=== PATIENT | male | born 1945 | race Caucasian/White ===

== ENCOUNTER 2018-01-12 20:48 | Inpatient (IN) ==
[2018-01-12] MEDS ORDERED: Ipratropium/Albuterol Neb 3 ML IH ONE (20:59)
[2018-01-12] MEDS ORDERED: methylPREDNISolone 125 MG/2 ML VIAL IVP ONE (21:00)
--- NOTE | 2018-01-12 21:25 | Emergency Department Note ---
Disposition Clinical Impression: Acute exacerbation of chronic obstructive airways disease Disposition: Admitted As Inpatient Condition: Fair [facility] Care Provider[facility] - Forms: ED Satisfaction Letter Time of Disposition: 22:31 General Adult HPI - General Chief complaint: ED Shortness of Breath/Dyspnea Stated complaint: MERVIN Time Seen by Provider: 01/12/18 20:58 Source: patient, family Mode of arrival: ambulatory Limitations: no limitations Nursing Notes Reviewed: Yes Vital Signs Reviewed: Yes - History of Present Illness HPI Narrative: 72yo male with past medical history of CAD, CABG, COPD, hypertension presented to [facility] via ambulance complaining of shortness of breath for one day. He reported he woke up with the shortness of breath that he has had all day then this evening it became worse so his nephew called EMS. He reported he took nebulizers and a nitroglycerin to help shortness of breath, which the nebulizers did help. He is up today on his flu and pneumonia vaccination. He denies recent hospitalization, fever, chills, chest pain, palpitations, syncope, abdominal pain, wheezing, cough, nausea, vomiting. He does not use home oxygen. He reports he has been compliant with his home inhalers and blood pressure medications. He receives his medical care from the [facility]. He denies history of DVT or PE. He is the current smoker of 1ppd for 30 years. - Related Data Home Medications Medication Instructions Recorded Confirmed Aspirin/Calcium Carbonate/Mag 325 mg PO DAILY 07/17/15 07/31/15 [Aspirin Buffered 325 mg Tab] Chlorthalidone 50 mg PO QAM 07/17/15 07/31/15 Ipratropium/Albuterol Sulfate 1 puff IH QID 07/31/15 07/31/15 [Combivent Respimat Inhal [place]] Atorvastatin Calcium [Lipitor] 80 mg PO HS 01/12/18 01/12/18 Loratadine [Claritin] 10 mg PO DAILY 01/12/18 01/12/18 Losartan Potassium [Cozaar] 50 mg PO BID 01/12/18 01/12/18 Metoprolol Tartrate [Metoprolol 50 mg PO BID 01/12/18 Tartrate] Sildenafil Citrate [Revatio] 20 mg PO TID 01/12/18 01/12/18 Allergies Allergy/AdvReac Type Severity Reaction Status Date / Time No Known Allergies Allergy Verified 12/10/15 08:42 All systems ED: reviewed and negative except as stated. Review of Systems: As Per HPI Constitutional: Denies: fever, chills Eyes: Denies: vision change Cardiovascular: Denies: chest pain, palpitations Respiratory: Reports: dyspnea. Denies: cough, wheezes Gastrointestinal: Denies: abdominal pain, nausea, vomiting Integumentary: Denies: rash Neurological: Denies: headache, weakness Past Medical History - Past Medical History Source: patient Medical history: Reports: coronary artery disease, GERD, hyperlipidemia, hypertension, other Surgical history: Reports: other Psychiatric history: Reports: no psych history - Social History Smoking Status: Current every day smoker Smokeless Tobacco Status: No Alcohol use: Reports: none Drug use: Reports: none Physical Exam - General Limitations: no limitations General appearance: alert, in no apparent distress - Head Head exam: atraumatic, normocephalic - Eye Eye exam: Present: normal appearance. Absent: scleral icterus - ENT ENT exam: mucous membranes dry - Chest Chest inspection: Present: normal inspection - Respiratory Respiratory exam: Present: wheezes (Bilaterally), other (Decreased breath sounds bilaterally) - Cardiovascular Cardiovascular exam: Present: regular rate, normal rhythm - Abdominal Exam Abdominal exam: Present: soft, Non-Tender, normal bowel sounds - Expanded Lower Extremity Exam Lower leg exam: Present: swelling (Bilateral). Absent: tenderness, laceration - Neurological Exam Neurological exam: Present: alert, oriented X3 - Psychiatric Psychiatric exam: Present: normal affect, normal mood - Skin Skin exam: Present: dry, intact Course Course Narrative: 72yo male with past medical history of CAD, CABG, COPD, hypertension presented to [facility] via ambulance complaining of shortness of breath for one day. The shortness of breath had been stable all day until this evening when it increased and EMS was called. He reported nebulizers improved his shortness of breath. He denied fever, chills, chest pain, palpitations, trauma. Differential includes COPD exacerbation, pneumonia, CHF exacerbation, pneumothorax. Chest x-ray, CBC, BMP, BNP, VBG, troponin, EKG were ordered. - Reevaluation(s) Reevaluation #1: Patient seen and evaluated at bedside, he reports shortness of breath has improved significantly. He stated that he is "ready for a cup of coffee". He is responding appropriately to the steroids and BiPAP. He was given a dose of Levaquin. Will call hospital is for admission. Time: 22:04 Vital Signs Respiratory Rate 22 01/12/18 20:58 Blood Pressure 175/122 01/12/18 20:58 O2 Sat by Pulse Oximetry 98 01/12/18 20:58 Respiratory Rate 22 01/12/18 20:58 Blood Pressure 175/122 01/12/18 20:58 O2 Sat by Pulse Oximetry 98 01/12/18 20:58 Medical Decision Making - MDM Narrative Medical decision making narrative: 72yo male with past medical history of CAD, CABG, COPD, hypertension presented to [facility] via ambulance complaining of shortness of breath for one day. He reported he woke up with the shortness of breath that he has had all day then this evening it became worse so his nephew called EMS. He reported he took nebulizers and a nitroglycerin to help shortness of breath, which the nebulizers did help. He is up today on his flu and pneumonia vaccination. He denies recent hospitalization, fever, chills, chest pain, palpitations, syncope, abdominal pain, wheezing, cough, nausea, vomiting, trauma. He does not use home oxygen. He reports he has been compliant with his home inhalers and blood pressure medications. He denies history of DVT or PE. He is the current smoker of 1ppd for 30 years. Upon admission he was placed on BiPAP. He was given Solu-Medrol, Levaquin, and duoneb. Chest x-ray demonstrated findings consistent with COPD, with small left pleural effusion. CBC demonstrate WBC mildly elevated. BNP 224, troponin negative. This is most likely a COPD exacerbation. The patient has reported improved shortness of breath since having the medications. Dr. Marquez the hospitalist has accepted admission of the patient. - Medical Records Medical records reviewed: Yes I reviewed the patient's medical records. - Lab Data Lab results reviewed: Yes I reviewed the patient's lab results. - Radiology Data Radiology results reviewed: Yes I reviewed the patient's radiology results. Chest X-Ray 01/12/18 20:59 IMPRESSION: 1. Slight increase in diffuse interstitial prominence, which could represent some mild edema superimposed on COPD. 2. Stable cardiomegaly. 3. Stable blunting of the left costophrenic angle with a small effusion or pleural thickening. D/ / 01/12/2018 21:52:16 Richard Prasad MD / denny Interpreting Provider: Richard Prasad MD - EKG Data EKG #1 EKG results narrative: EKG demonstrates HR 98, NSR, normal axis, no ST changes. T wave inversion in lead V-6 however, T wave inversion on lead 1 and aVL is seen on prior EKG. IN 160, QRS 97, QT/QTc 356/411 EKG shows normal: sinus rhythm Rate: normal Rhythm: NSR [place]/QRS: normal
[2018-01-12 21:36] LABS: Basophils % 0.3 %; Eosinophils # 0.1 K/mcL (0.0-0.6); Eosinophils % 0.8 %; Hemoglobin 14.8 g/dL (12.9-16.9); Lymphocytes # 1.2 K/mcL (0.6-4.6); Lymphocytes % 9.7 %; Mean Corpuscular HGB Conc 32.9 g/dL (31.6-35.5); Mean Corpuscular Hemoglobin 29.9 pg (28.0-33.3); Mean Corpuscular Volume 90.9 fL (83.0-100.0); Mean Platelet Volume 8.8 fL (9.4-12.4); Monocytes # 0.7 K/mcL (0.0-1.3); Monocytes % 5.9 %; Neutrophils # 10.3 K/mcL (1.6-8.9); Platelet Count 256 K/mcL (140-400); Red Blood Count 4.95 M/mcL (4.19-5.50); Red Cell Distribution Width 13.4 % (11.5-14.5); Segmented Neutrophils % 82.3 %
[2018-01-12 21:39] LABS: VBG HCO3 31 mEq/L (21-27); VBG PCO2 64 mmHg (41-51); VBG PO2 68 mmHg (25-50)
[2018-01-12] MEDS ORDERED: Levofloxacin 750 MG/150 ML 750 MG/150 ML BAG IVPB ONE (21:55)
[2018-01-12 21:58] LABS: BUN/Creatinine Ratio 26 (6-26); Blood Urea Nitrogen 25 mg/dL (8-23); Calcium 8.9 mg/dL (8.6-10.3); Carbon Dioxide 29 mEq/L (23-29); Chloride 92 mEq/L (98-107); Glucose 161 mg/dL (70-105); Osmolality,Calculated 274 (280-300); Potassium 4.3 mEq/L (3.5-5.1); Sodium 128 mEq/L (136-145); eGFR For African Americans > 60 (> 60); eGFR For Non-African Americans > 60 (> 60)
[2018-01-12 21:59] LABS: Troponin I 0.03 ng/mL (< 0.04)
--- NOTE | 2018-01-12 22:40 | Internal Med History&Physical ---
Date of Encounter: 01/12/18 Time of Encounter: 22:36 Internal Medicine - H&P: HPI Chief complaint: shortness of breath Admitted From: Emergency Dept Plans for Post Hospital Care: Home History of present illness: Mr. Ibanez is a 72 year old male with PMH of CAD s/p CABG, COPD, hypertension, pulm htn, tobacco abuse who presents to the ED via EMS complaining of shortness of breath since the morning. The patient woke up like this and has been significantly in respiratory distress all day and his nephew ended up calling EMS. He took his nebulizers without any relief. Talking more to the patient and his sister and son who were in the room in the ED, they tell me that the patient has been actually short of breath for 6 weeks or so. During that time he has been evaluated at the [facility] about 2 weeks ago with an echo. I dont have results of that but they said they have the results at home and will bring it in. They were told he has pulm htn. They also say that he has SOB with exertion. He has been dealing with a dry cough. He has gained weight in his abdomen and LE. He has gained about 20 Ibs in 6 weeks or so. The ED treated him as a COPD exacerbation. Denies any fever, chills, chest pain, palpitations, abdominal pain, diarrhea, constipation, urinary symptoms, or neurological symptoms. Upon presentation the patient was in significant respiratory distress that he was put on BiPAP however I do not see documented hypoxia. EMS reports he was around 86% on room air initially. He was given IV steroids for wheezing as well as a couple of nebulizers. Laboratory workup showed WBC count of 12.5 and was also given for hyponatremia of 128. The patient BNP was 224. Chest x-ray showed findings of slight increase in diffuse interstitial prominence which could represent some mild edema superimposed on COPD. Last echo in our system was in 2014 showing an EF of 60-65% with LVH and indeterminate diastolic function. There was no valvular dysfunction. Past Med Surg Social Fam HX - Past Medical History Medical history: coronary artery disease, GERD, hyperlipidemia, hypertension, other Additional medical history: Pulmonary hypertension Psychiatric history: no psych history - Past Surgical History Surgical History: other Additional surgical history: open heart surgery - Social History Smoking Status: Current every day smoker Smokeless Tobacco Status: No Alcohol use: none Drug use: none - Family History Mother Family Member Ethnicity: Non- Living Status: Hx Family Cardiac Disorders: Yes Hx Family Cancer: Yes Hx Family Endocrine Disorder: Yes Internal Medicine - H&P: Meds Aspirin/Calcium Carbonate/Mag [Aspirin Buffered 325 mg Tab] 325 mg PO DAILY 05/22 [History] Chlorthalidone 50 mg PO QAM 07/17/15 [History] Ipratropium/Albuterol Sulfate [Combivent Respimat Inhal [place]] 1 puff IH QID [History] Atorvastatin Calcium [Lipitor] 80 mg PO HS 01/12/18 [History] Loratadine [Claritin] 10 mg PO DAILY 01/12/18 [History] Losartan Potassium [Cozaar] 50 mg PO BID 01/12/18 [History] Metoprolol Tartrate [Metoprolol Tartrate] 50 mg PO BID 01/12/18 [History] Sildenafil Citrate [Revatio] 20 mg PO TID 01/12/18 [History] 3 Allergy/AdvReac Type Severity Reaction Status Date / Time No Known Allergies Allergy Verified 07/17/15 08:42 All Systems PM: A 10-system review of systems was performed and is negative for pertinent findings except as documented above in the HPI. Review of systems: All systems reviewed are negative except for as mentioned above - Constitutional Vitals: Temp Pulse Resp BP Pulse Ox 98.4 F 103 24 222/135 98 01/12/18 21:27 01/12/18 21:27 01/12/18 21:27 01/12/18 21:27 01/12/18 21:27 Exam: GEN: NAD HEENT: AT, NC, No cyanosis, oral mucosa is moist, No JVD Lymphatics: No lymphadenoapthy Eyes: Extrocular muscles intact, anicteric CVS:RRR. S1, S2, No m/r/g RESP: Diminished with bibasilar crackles and expiratory wheezes. ABD: Soft, NT, ND, +BS EXT: No edema, No rashes, 2+ DP NEURO: Nonfocal, CN II-XII intact, No focal motor or sensory deficits Psych: Cooperative, Not anxious or depressed Internal Med - H&P Results - Labs CBC & Chem 7: 01/12/18 21:21 01/12/18 21:21 Labs: Short CBC 01/12/18 Range/Units 21:21 WBC 12.5 H (4.3-11.1) K/mcL Hgb 14.8 (12.9-16.9) g/dL Hct 45.0 (37.5-50.1) % Plt Count 256 (140-400) K/mcL Neutrophils # 10.3 H (1.6-8.9) K/mcL BMP 01/12/18 21:21 Sodium 128 L Potassium 4.3 Chloride 92 L Carbon Dioxide 29 BUN 25 H Creatinine 0.96 Glucose 161 H Calcium 8.9 Cardiac Enzymes 01/12/18 Range/Units 21:21 Troponin I 0.03 (< 0.04) ng/mL - ABG Interpretation ABG results: 01/12/18 21:36 VBG pH 7.30 L VBG pCO2 64 H VBG pO2 68 H VBG HCO3 31 H - Impressions ITS Impressions Chest X-Ray 01/12/18 20:59 IMPRESSION: 1. Slight increase in diffuse interstitial prominence, which could represent some mild edema superimposed on COPD. 2. Stable cardiomegaly. 3. Stable blunting of the left costophrenic angle with a small effusion or pleural thickening. D/ / 01/12/2018 21:52:16 Richard Prasad MD / [email or web address] Interpreting Provider: Richard Prasad MD - Assessment and plan (1) Acute respiratory failure with hypoxia Current Visit: Yes Status: Acute Assessment and plan: The patient was presented as a COPD exacerbation. Although he may have some componenet of that, I think his symptoms and work up in the ED is most consistent with a CHF exacerbation. He has elevated BNP and findings on chest x- ray of edema. He has LE edema and significant weight gain. I will treat the patient for CHF exacerbation and COPD exacerbation. I will also give him a dose of Lasix 40 mg IV now (2) CHF exacerbation Current Visit: Yes Status: Acute Assessment and plan: Will give lasix 40 mg IV now. Family to obtain echo results done 2 weeks ago. Start lasix 40 mg IV BID. monitor I&Os. cardiac diet. O2 support. Nebs. Qualifiers: Heart failure type: unspecified Qualified Code(s): I50.9 - Heart failure, unspecified (3) Acute exacerbation of chronic obstructive airways disease Current Visit: Yes Status: Acute Assessment and plan: We will place the patient on IV Solu-Medrol scheduled. Scheduled nebs. IV Levaquin. Wean O2 as tolerated. (4) Hyponatremia Current Visit: Yes Status: Acute Assessment and plan: Na mildly low at 128. Possibly some volume overload. Will try 40mg IV lasix once and check labs in the morning. check urine Na and urine osm. (5) HTN (hypertension) Current Visit: No Status: Chronic Assessment and plan: Resume home antihypertensives Qualifiers: Hypertension type: essential hypertension Qualified Code(s): I10 - Essential (primary) hypertension (6) Pre-diabetes Current Visit: Yes Status: Acute Assessment and plan: Insulin sliding scale. Accucheks. check A1c. (7) CAD (coronary artery disease) Current Visit: Yes Status: Acute Assessment and plan: Resume cardiac meds Qualifiers: Coronary Disease-Associated Artery/Lesion type: bypass graft [place] vs. transplanted heart: [place] heart Associated angina: without angina Qualified Code(s): I25.810 - Atherosclerosis of coronary artery bypass graft(s) without angina pectoris (8) Tobacco abuse Current Visit: No Status: Acute Assessment and plan: Nicotine Patch (9) DVT prophylaxis Current Visit: Yes Status: Acute Assessment and plan: Heparin subcutaneous - Time Spent With Patient Total time spent is greater than 50% in coordination of care (as documented) at patient's floor/unit and/or counseling patient:
[2018-01-12] MEDS ORDERED: Furosemide 40 MG/4 ML VIAL IVP ONE (22:42)
[2018-01-12] MEDS ORDERED: Ondansetron 4 MG/2 ML VIAL IVP PRN (22:43)
[2018-01-12] MEDS ORDERED: Naloxone 0.4 MG/ML INJ IVP PRN (22:46)
[2018-01-12] MEDS ORDERED: Acetaminophen 325 MG TABLET PO PRN (22:46)
[2018-01-12] MEDS ORDERED: Aspirin 81 MG TAB.CHEW PO ONE (22:48)
[2018-01-12] MEDS ORDERED: Aspirin 81 MG TAB.CHEW ONE (22:49)
[2018-01-12] MEDS ORDERED: D5% in Water 1,000 ML IVC PRN (23:13)
[2018-01-12] MEDS ORDERED: Dextrose Gel 15 GM/37.5 ML TUBE PO PRN ×2 (23:13)
[2018-01-12] MEDS ORDERED: *HR* Dextrose 50 % in Water (Syg) 50 ML SYRINGE IVP PRN (23:13)
--- NOTE | 2018-01-12 23:30 | Emergency Department Note ---
Disposition Clinical Impression: Acute exacerbation of chronic obstructive airways disease Disposition: Admitted As Inpatient Condition: Fair General Adult HPI - General Chief complaint: ED Shortness of Breath/Dyspnea Stated complaint: MERVIN Time Seen by Provider: 01/12/18 20:58 Source: patient, family Mode of arrival: ambulatory Limitations: no limitations - History of Present Illness Pain Scale: 0 - Related Data Home Medications Medication Instructions Recorded Confirmed Aspirin/Calcium Carbonate/Mag 325 mg PO DAILY 07/17/15 01/12/18 [Aspirin Buffered 325 mg Tab] Chlorthalidone 50 mg PO QAM 07/17/15 01/12/18 Ipratropium/Albuterol Sulfate 1 puff IH QID 07/31/15 01/12/18 [Combivent Respimat Inhal [place]] Atorvastatin Calcium [Lipitor] 80 mg PO HS 01/12/18 01/12/18 Loratadine [Claritin] 10 mg PO DAILY 01/12/18 01/12/18 Losartan Potassium [Cozaar] 50 mg PO BID 01/12/18 01/12/18 Metoprolol Tartrate [Metoprolol 50 mg PO BID 01/12/18 01/12/18 Tartrate] Sildenafil Citrate [Revatio] 20 mg PO TID 01/12/18 01/12/18 Allergies Allergy/AdvReac Type Severity Reaction Status Date / Time No Known Allergies Allergy Verified 07/17/15 08:42 Constitutional: Denies: fever, chills Eyes: Denies: vision change Cardiovascular: Denies: chest pain, palpitations Respiratory: Reports: dyspnea. Denies: cough, wheezes Gastrointestinal: Denies: abdominal pain, nausea, vomiting Integumentary: Denies: rash Neurological: Denies: headache, weakness Past Medical History - Past Medical History Medical history: Reports: coronary artery disease, GERD, hyperlipidemia, hypertension, other Surgical history: Reports: other Psychiatric history: Reports: no psych history - Social History Smoking Status: Current every day smoker Smokeless Tobacco Status: No Alcohol use: Reports: none Drug use: Reports: none Physical Exam - General Limitations: no limitations General appearance: alert, in no apparent distress Course Vital Signs Respiratory Rate 22 01/12/18 20:58 Blood Pressure 175/122 01/12/18 20:58 O2 Sat by Pulse Oximetry 98 01/12/18 20:58 Temperature 98.4 F 01/12/18 21:27 Pulse Rate 103 01/12/18 21:27 Respiratory Rate 24 01/12/18 21:27 Blood Pressure 222/135 01/12/18 21:27 O2 Sat by Pulse Oximetry 98 01/12/18 21:27 Oxygen Delivery Oxygen Delivery Non Rebreather Mask Medical Decision Making - Lab Data Result diagrams: 01/12/18 21:21 01/12/18 21:21 Lab Results 01/12/18 01/12/18 01/12/18 Range/Units 21:21 21:21 21:21 WBC 12.5 H (4.3-11.1) K/mcL RBC 4.95 (4.19-5.50) M/mcL Hgb 14.8 (12.9-16.9) g/dL Hct 45.0 (37.5-50.1) % MCV 90.9 (83.0-100.0) fL MCH 29.9 (28.0-33.3) pg MCHC 32.9 (31.6-35.5) g/dL RDW 13.4 (11.5-14.5) % Plt Count 256 (140-400) K/mcL MPV 8.8 L (9.4-12.4) fL Immature Gran % 1.0 (0-4) % Seg Neutrophils % 82.3 % Lymphocytes % 9.7 % Monocytes % 5.9 % Eosinophils % 0.8 % Basophils % 0.3 % Neutrophils # 10.3 H (1.6-8.9) K/mcL Lymphocytes # 1.2 (0.6-4.6) K/mcL Monocytes # 0.7 (0.0-1.3) K/mcL Eosinophils # 0.1 (0.0-0.6) K/mcL Basophils # 0.0 (0.0-0.2) K/mcL VBG pH (7.32-7.42) pH Units VBG pCO2 (41-51) mmHg VBG pO2 (25-50) mmHg VBG HCO3 (21-27) mEq/L Sodium 128 L (136-145) mEq/L Potassium 4.3 (3.5-5.1) mEq/L Chloride 92 L (98-107) mEq/L Carbon Dioxide 29 (23-29) mEq/L BUN 25 H (8-23) mg/dL Creatinine 0.96 (0.70-1.30) mg/dL Est GFR ( Amer) > 60 (> 60) Est GFR (Non-Af Amer) > 60 (> 60) BUN/Creatinine Ratio 26 (6-26) Glucose 161 H (70-105) mg/dL Calculated Osmolality 274 L (280-300) Lactic Acid (0.5-2.2) mmol/L Calcium 8.9 (8.6-10.3) mg/dL Troponin I 0.03 (< 0.04) ng/mL B-Natriuretic Peptide 224 H (Less than 100) pg/mL 01/12/18 01/12/18 Range/Units 21:36 22:27 WBC (4.3-11.1) K/mcL RBC (4.19-5.50) M/mcL Hgb (12.9-16.9) g/dL Hct (37.5-50.1) % MCV (83.0-100.0) fL MCH (28.0-33.3) pg MCHC (31.6-35.5) g/dL RDW (11.5-14.5) % Plt Count (140-400) K/mcL MPV (9.4-12.4) fL Immature Gran % (0-4) % Seg Neutrophils % % Lymphocytes % % Monocytes % % Eosinophils % % Basophils % % Neutrophils # (1.6-8.9) K/mcL Lymphocytes # (0.6-4.6) K/mcL Monocytes # (0.0-1.3) K/mcL Eosinophils # (0.0-0.6) K/mcL Basophils # (0.0-0.2) K/mcL VBG pH 7.30 L (7.32-7.42) pH Units VBG pCO2 64 H (41-51) mmHg VBG pO2 68 H (25-50) mmHg VBG HCO3 31 H (21-27) mEq/L Sodium (136-145) mEq/L Potassium (3.5-5.1) mEq/L Chloride (98-107) mEq/L Carbon Dioxide (23-29) mEq/L BUN (8-23) mg/dL Creatinine (0.70-1.30) mg/dL Est GFR ( Amer) (> 60) Est GFR (Non-Af Amer) (> 60) BUN/Creatinine Ratio (6-26) Glucose (70-105) mg/dL Calculated Osmolality (280-300) Lactic Acid 0.7 (0.5-2.2) mmol/L Calcium (8.6-10.3) mg/dL Troponin I (< 0.04) ng/mL B-Natriuretic Peptide (Less than 100) pg/mL Critical Care Time Critical Care Time: Yes Total Critical Care Time: 35 Attestation: The high probability of a clinically significant, sudden or life threatening deterioration of the [resp] system(s) required my full and direct attention, intervention and personal management. The aggregate critical care time was [35] minutes. This time is in addition to time spent performing reported procedures but includes the following: [x] Data Review and interpretation [x] Patient assessment and monitoring of vital signs [x] Documentation [x] Medication orders and management Attestation Statement - Attestation Attestation: I examined this patient and my medical decision-making was reviewed with the Resident Physician, Dr. Morales. I agree with the documented findings, disposition and treatment plan as described except to the extent set forth below. Patient is a 72-year-old white male with a history of known coronary artery disease status post remote CABG as well as COPD who presents to the emergency department with a 24-hour history of gradually worsening shortness of breath. Patient denies any fevers or chills, no production of cough, is not wheezing I laterally throughout with increased work of breathing and respiratory distress on arrival with hypoxia. Patient denies any chest pain pressure or heaviness, no diaphoresis, no nausea vomiting or posttussive emesis. No abdominal pain or flank pain. I agree with patient's physical exam findings as documented. Patient's EKG does not show any acute ischemia normal sinus rhythm. Patient was placed on BiPAP shortly after arrival for respiratory distress. Patient had breathing treatments and steroids initiated and also received aspirin. Patient with gradual improvement in respiratory status with BiPAP. Patient's chest x-ray shows some mild interstitial prominence but no acute infiltrate, cardiomegaly. Patient's labs show mild hyponatremia as well as leukocytosis with left shift. IV fluids were held due to increased interstitial prominence. Lactate is within normal limits. Patient with IV antibiotics added for exacerbation of COPD and will be admitted to the hospitalist service patient's hemodynamically stable, respiratory status significantly improved at this time and chest pain- free. Case discussed with hospitalist who accepted patient for admission for further evaluation and management.
[2018-01-13] MEDS: Nicotine 21 MG PATCH.TD24 TD SCH ×2 (00:21→08:41)
[2018-01-13] MEDS: methylPREDNISolone 125 MG/2 ML VIAL IVP SCH ×3 (00:21→17:37)
[2018-01-13] MEDS: Ipratropium/Albuterol Neb 3 ML IH SCH ×5 (04:42→20:04)
[2018-01-13] MEDS: *HR* Heparin 5,000 UNIT/ML VIAL SQ SCH ×3 (06:39→20:35)
[2018-01-13 06:44] LABS: Basophils % 0.2 %; Hematocrit 44.9 % (37.5-50.1); Immature Granulocytes % 1.2 % (0-4); Lymphocytes # 0.4 K/mcL (0.6-4.6); Lymphocytes % 3.5 %; Mean Corpuscular HGB Conc 33.4 g/dL (31.6-35.5); Mean Corpuscular Hemoglobin 30.2 pg (28.0-33.3); Mean Corpuscular Volume 90.5 fL (83.0-100.0); Monocytes # 0.1 K/mcL (0.0-1.3); Monocytes % 0.5 %; Neutrophils # 11.4 K/mcL (1.6-8.9); Platelet Count 245 K/mcL (140-400); Red Blood Count 4.96 M/mcL (4.19-5.50); Red Cell Distribution Width 13.4 % (11.5-14.5); Segmented Neutrophils % 94.6 %
[2018-01-13 06:52] LABS: BUN/Creatinine Ratio 26 (6-26); Blood Urea Nitrogen 24 mg/dL (8-23); Carbon Dioxide 27 mEq/L (23-29); Chloride 91 mEq/L (98-107); Glucose 187 mg/dL (70-105); Magnesium 1.8 mg/dL (1.6-2.6); Osmolality,Calculated 271 (280-300); Potassium 4.4 mEq/L (3.5-5.1); Sodium 126 mEq/L (136-145); eGFR For African Americans > 60 (> 60); eGFR For Non-African Americans > 60 (> 60)
[2018-01-13] MEDS: Loratadine 10 MG TABLET PO SCH (08:40)
[2018-01-13] MEDS: Aspirin Enteric Coated 325 MG Tablet PO SCH (08:40)
[2018-01-13] MEDS: Insulin LISPRO 300 UNITS/3 ML VIAL SQ SCH ×4 (08:41→20:35)
[2018-01-13] MEDS ORDERED: Furosemide 40 MG/4 ML VIAL IVP SCH (09:00)
[2018-01-13 09:07] LABS: Estimated Average Glucose 151 mg/dl; Hemoglobin A1C 6.9 %
--- NOTE | 2018-01-13 10:37 | Internal Med Progress Note ---
Date of Encounter: 01/13/18 Time of Encounter: 10:35 - Assessment and plan (1) HTN (hypertension) Current Visit: Yes Status: Chronic Assessment and plan: Uncontrolled Continue metoprolol, losartan, lasix, hold chlorthalidone while giving lasix hydralazine prn Qualifiers: Hypertension type: essential hypertension Qualified Code(s): I10 - Essential (primary) hypertension (2) Tobacco abuse Current Visit: Yes Status: Chronic Assessment and plan: encourage cessation, on NRT (3) Acute exacerbation of chronic obstructive airways disease Current Visit: Yes Status: Acute Assessment and plan: Continue levaquin, solumedrol, duonebs (4) DVT prophylaxis Current Visit: Yes Status: Acute Assessment and plan: Heparin subcutaneous (5) Hyponatremia Current Visit: Yes Status: Acute Assessment and plan: hypoosmolar, possibly due to fluid overload continue to monitor (6) Acute respiratory failure with hypoxia Current Visit: Yes Status: Acute Assessment and plan: Multifactorial: COPDE CHFE Continue O2 by NC Goal O2 is 88-92%, patient is known severe COPD (7) CHF exacerbation Current Visit: Yes Status: Acute Assessment and plan: ECHO from outside read 'moderately reduced EF, mild AI, mild MR, Pulm HTN" order repeat ECHO Continue lasix IV , increase to TID Strict I/Os Daily weight Fluid restriction ECHO Qualifiers: Heart failure type: unspecified Qualified Code(s): I50.9 - Heart failure, unspecified (8) Pre-diabetes Current Visit: Yes Status: Acute Assessment and plan: AC 6.9 See DM for mgt (9) CAD (coronary artery disease) Current Visit: Yes Status: Chronic Assessment and plan: Continuie ASA, Ststin, ARB, BB Qualifiers: Coronary Disease-Associated Artery/Lesion type: bypass graft [place] vs. transplanted heart: [place] heart Associated angina: without angina Qualified Code(s): I25.810 - Atherosclerosis of coronary artery bypass graft(s) without angina pectoris (10) Diabetes Current Visit: Yes Status: Chronic Assessment and plan: FS ACHS Sliding scale A1C 6.9 ADA diet Qualifiers: Diabetes mellitus type: type 2 Diabetes mellitus [place] insulin use: without dollyman use Diabetes mellitus complication status: without complication Qualified Code(s): E11.9 - Type 2 diabetes mellitus without complications (11) Morbid obesity with BMI of 40.0-44.9, adult Current Visit: Yes Status: Chronic Assessment and plan: lifestyle modification - Time Spent With Patient Total time spent is greater than 50% in coordination of care (as documented) at patient's floor/unit and/or counseling patient: - Subjective Interval history: Seen and evaluated at the bedside with family he is still coughing up phlegm Report from prior ECHO noted-reported as "moderately rediced EF, mild AI, aortic sclerosis, mild MR, LVH, Pulm HTN', no numbers. PFT report: Severe COPD We will obtain repeat ECHO here for specificity and soncult cardiology prn He is off BiPAP now - Constitutional Vitals: Temp Pulse Resp BP Pulse Ox 98.5 F 112 19 166/99 92 01/13/18 07:41 01/13/18 07:41 01/13/18 07:41 01/13/18 07:41 01/13/18 07:41 General appearance: Present: A&O X 3, morbidly obese, no acute distress - Head Head exam: Present: atraumatic - Eye Eye exam: Present: PERRL, conjuntiva pink. Absent: scleral icterus - ENT ENT exam: Present: mucous membranes moist - Neck Neck exam general surgery: Present: normal inspection - Respiratory Respiratory exam: Present: prolonged expiratory phase, rales, wheezes. Absent: rhonchi, stridor - Cardiovascular Cardiovascular exam: Present: RRR, +S1, +S2. Absent: systolic murmur - GI/Abdominal GI/Abdominal exam: Present: normal bowel sounds, soft, no peritoneal signs. Absent: distended, tenderness - Extremities Exam Extremities exam: Present: pedal edema (3+ bilateral pitting pedal edema) Internal Medicine: Result - Labs CBC & Chem 7: 01/13/18 06:16 01/13/18 06:16 Labs: Short CBC 01/13/18 Range/Units 06:16 WBC 12.1 H (4.3-11.1) K/mcL Hgb 15.0 (12.9-16.9) g/dL Hct 44.9 (37.5-50.1) % Plt Count 245 (140-400) K/mcL Neutrophils # 11.4 H (1.6-8.9) K/mcL BMP 01/13/18 06:16 Sodium 126 L Potassium 4.4 Chloride 91 L Carbon Dioxide 27 BUN 24 H Creatinine 0.92 Glucose 187 H Calcium 9.0 Consult Discharge Plan - Plan [facility]errals: [facility] [Primary Care Provider[facility] -
[2018-01-13] MEDS: Furosemide 40 MG/4 ML VIAL IVP SCH ×2 (17:37→20:35)
[2018-01-13] MEDS: Levofloxacin 500 MG/100 ML 500 MG/100 ML BAG IVPB SCH (17:38)
--- NOTE | 2018-01-13 17:53 | Electrocardiograph Report ---
[address] [place] [address] Test Date: 2018-01-12 Pat Name: Len Ibanez Department: [id number] Room: 2NE34 Gender: M Employee Relations Administrator: EKP : 1945 Requested By: Sheng Munoz Order Number: [id number] Reading MD: Tyrese Hall Measurements Intervals [place] Rate: 98 P: 67 [place]: 160 QRS: 8 QRSD: 97 T: 143 QT: 356 QTc: 411 Interpretive Statements SINUS RHYTHM LEFT ATRIAL ENLARGEMENT ST DEVIATION AND MODERATE T-WAVE ABNORMALITY, CONSIDER LATERAL ISCHEMIA Electronically Signed On 01-13-2018 17:51:23 EDT by Tyrese Hall
[2018-01-13] MEDS ORDERED: Perflutren Lipid Microsphere 1.3 ML in 0.9 % Sodium Chloride 8.7 ML IVP ONE (18:39)
[2018-01-13] MEDS ORDERED: Ipratropium/Albuterol Neb 3 ML IH PRN (20:22)
[2018-01-14] MEDS: Ipratropium/Albuterol Neb 3 ML IH SCH ×6 (00:25→20:16)
[2018-01-14] MEDS: methylPREDNISolone 125 MG/2 ML VIAL IVP SCH ×3 (00:59→18:00)
[2018-01-14 06:10] LABS: Basophils % 0.1 %; Hematocrit 43.3 % (37.5-50.1); Hemoglobin 14.3 g/dL (12.9-16.9); Immature Granulocytes % 0.7 % (0-4); Lymphocytes # 0.7 K/mcL (0.6-4.6); Lymphocytes % 4.6 %; Mean Corpuscular Hemoglobin 29.9 pg (28.0-33.3); Mean Corpuscular Volume 90.6 fL (83.0-100.0); Monocytes # 0.3 K/mcL (0.0-1.3); Monocytes % 2.3 %; Neutrophils # 13.1 K/mcL (1.6-8.9); Platelet Count 251 K/mcL (140-400); Red Blood Count 4.78 M/mcL (4.19-5.50); Red Cell Distribution Width 13.7 % (11.5-14.5); Segmented Neutrophils % 92.3 %
[2018-01-14] MEDS: *HR* Heparin 5,000 UNIT/ML VIAL SQ SCH ×3 (06:22→21:14)
[2018-01-14 06:33] LABS: BUN/Creatinine Ratio 30 (6-26); Blood Urea Nitrogen 36 mg/dL (8-23); Calcium 8.9 mg/dL (8.6-10.3); Carbon Dioxide 33 mEq/L (23-29); Chloride 86 mEq/L (98-107); Glucose 157 mg/dL (70-105); Osmolality,Calculated 276 (280-300); Sodium 127 mEq/L (136-145); eGFR For African Americans > 60 (> 60); eGFR For Non-African Americans 59 (> 60)
[2018-01-14] MEDS: Insulin LISPRO 300 UNITS/3 ML VIAL SQ SCH ×4 (07:46→20:20)
[2018-01-14] MEDS: Furosemide 40 MG/4 ML VIAL IVP SCH ×2 (07:52→18:00)
[2018-01-14] MEDS: Aspirin Enteric Coated 325 MG Tablet PO SCH (07:52)
[2018-01-14] MEDS: Loratadine 10 MG TABLET PO SCH (07:52)
[2018-01-14] MEDS: Nicotine 21 MG PATCH.TD24 TD SCH (07:53)
[2018-01-14] MEDS ORDERED: Furosemide 40 MG/4 ML VIAL IVP SCH (09:00)
[2018-01-14] MEDS ORDERED: Perflutren Lipid Microsphere 1.3 ML in 0.9 % Sodium Chloride 8.7 ML IVP ONE (09:40)
--- NOTE | 2018-01-14 09:59 | Internal Med Progress Note ---
Date of Encounter: 01/14/18 Time of Encounter: 09:59 - Assessment and plan (1) HTN (hypertension) Current Visit: Yes Status: Chronic Assessment and plan: Uncontrolled Continue metoprolol, losartan, lasix, hold chlorthalidone while giving lasix hydralazine prn Qualifiers: Hypertension type: essential hypertension Qualified Code(s): I10 - Essential (primary) hypertension (2) Tobacco abuse Current Visit: Yes Status: Chronic Assessment and plan: encourage cessation, on NRT (3) Acute exacerbation of chronic obstructive airways disease Current Visit: Yes Status: Acute Assessment and plan: Continue levaquin, duonebs switched solumedrolto prednisone (4) DVT prophylaxis Current Visit: Yes Status: Acute Assessment and plan: Heparin subcutaneous (5) Hyponatremia Current Visit: Yes Status: Acute Assessment and plan: hypoosmolar, possibly due to fluid overload Improving,from 126 6/8 to127 this a.m continue to monitor (6) Acute respiratory failure with hypoxia Current Visit: Yes Status: Acute Assessment and plan: Multifactorial: COPDE CHFE Continue O2 by [place] Goal O2 is 88-92%, patient is known severe COPD (7) CHF exacerbation Current Visit: Yes Status: Acute Assessment and plan: ECHO from outside read 'moderately reduced EF, mild AI, mild MR, Pulm HTN" order repeat ECHO Continue lasix IV , increase to TID Strict I/Os Daily weight Fluid restriction ECHO report pending Qualifiers: Heart failure type: unspecified Qualified Code(s): I50.9 - Heart failure, unspecified (8) Pre-diabetes Current Visit: Yes Status: Acute Assessment and plan: AC 6.9 See DM for mgt (9) CAD (coronary artery disease) Current Visit: Yes Status: Chronic Assessment and plan: Continuie ASA, Ststin, ARB, BB Qualifiers: Coronary Disease-Associated Artery/Lesion type: bypass graft [place] vs. transplanted heart: [place] heart Associated angina: without angina Qualified Code(s): I25.810 - Atherosclerosis of coronary artery bypass graft(s) without angina pectoris (10) Diabetes Current Visit: Yes Status: Chronic Assessment and plan: FS ACHS Sliding scale A1C 6.9 ADA diet Qualifiers: Diabetes mellitus type: type 2 Diabetes mellitus correction insulin use: without correction use Diabetes mellitus complication status: without complication Qualified Code(s): E11.9 - Type 2 diabetes mellitus without complications (11) Morbid obesity with BMI of 40.0-44.9, adult Current Visit: Yes Status: Chronic Assessment and plan: lifestyle modification - Time Spent With Patient Total time spent is greater than 50% in coordination of care (as documented) at patient's floor/unit and/or counseling patient: - Subjective Interval history: Seen and evaluated at the bedside reports improved breathing Report from prior ECHO noted-reported as "moderately rediced EF, mild AI, aortic sclerosis, mild MR, LVH, Pulm HTN', no numbers. PFT report: Severe COPD Repeat ECHO pending I/O -5L No new complains - Constitutional Vitals: Temp Pulse Resp BP Pulse Ox 98.3 F 95 18 136/90 96 01/14/18 06:49 01/14/18 06:49 01/14/18 08:57 01/14/18 06:49 01/14/18 08:57 General appearance: Present: disheveled, A&O X 3, morbidly obese, no acute distress - Head Head exam: Present: atraumatic, normocephalic - Eye Eye exam: Present: PERRL, conjuntiva pink, sclera anicteric Pupils: Present: PERRL - Neck Neck exam general surgery: Present: supple, trachea midline. Absent: lymphadenopathy - Respiratory Respiratory exam: Present: rales, wheezes - Cardiovascular Cardiovascular exam: Present: RRR, +S1, +S2. Absent: diastolic murmur, gallop, rubs, systolic murmur - GI/Abdominal GI/Abdominal exam: Present: normal bowel sounds, soft, no peritoneal signs. Absent: distended, tenderness - Extremities Exam Extremities exam: Present: pedal edema (3+piting pedal edema) - Neurological Exam Neurological exam: Present: alert, CN II-XII intact, oriented X3, no focal deficits. Absent: pronater drift, facial droop, speech deficit - Skin Skin exam: Present: dry Internal Medicine: Result - Labs CBC & Chem 7: 01/14/18 05:48 01/14/18 05:48 Labs: Short CBC 01/14/18 Range/Units 05:48 WBC 14.2 H (4.3-11.1) K/mcL Hgb 14.3 (12.9-16.9) g/dL Hct 43.3 (37.5-50.1) % Plt Count 251 (140-400) K/mcL Neutrophils # 13.1 H (1.6-8.9) K/mcL BMP 01/14/18 05:48 Sodium 127 L Potassium 4.0 Chloride 86 L Carbon Dioxide 33 H BUN 36 H Creatinine 1.22 Glucose 157 H Calcium 8.9 Consult Discharge Plan - Plan [facility]: [facility] [Primary Care Provider[facility] -
[2018-01-14] MEDS: Levofloxacin 500 MG/100 ML 500 MG/100 ML BAG IVPB SCH (20:23)
[2018-01-15] MEDS: Ipratropium/Albuterol Neb 3 ML IH SCH ×7 (00:09→23:03)
[2018-01-15] MEDS: methylPREDNISolone 125 MG/2 ML VIAL IVP SCH ×3 (00:32→15:55)
[2018-01-15 05:30] LABS: Basophils % 0.1 %; Hematocrit 44.6 % (37.5-50.1); Immature Granulocytes % 1.5 % (0-4); Lymphocytes # 0.6 K/mcL (0.6-4.6); Lymphocytes % 3.6 %; Mean Corpuscular HGB Conc 33.6 g/dL (31.6-35.5); Mean Corpuscular Hemoglobin 30.4 pg (28.0-33.3); Mean Corpuscular Volume 90.3 fL (83.0-100.0); Mean Platelet Volume 8.9 fL (9.4-12.4); Monocytes # 0.5 K/mcL (0.0-1.3); Monocytes % 2.8 %; Neutrophils # 14.9 K/mcL (1.6-8.9); Platelet Count 259 K/mcL (140-400); Red Blood Count 4.94 M/mcL (4.19-5.50); Red Cell Distribution Width 13.4 % (11.5-14.5)
[2018-01-15 05:48] LABS: BUN/Creatinine Ratio 30 (6-26); Blood Urea Nitrogen 39 mg/dL (8-23); Calcium 8.9 mg/dL (8.6-10.3); Carbon Dioxide 37 mEq/L (23-29); Chloride 85 mEq/L (98-107); Glucose 138 mg/dL (70-105); Osmolality,Calculated 278 (280-300); Potassium 3.8 mEq/L (3.5-5.1); Sodium 128 mEq/L (136-145); eGFR For African Americans > 60 (> 60); eGFR For Non-African Americans 56 (> 60)
[2018-01-15] MEDS: *HR* Heparin 5,000 UNIT/ML VIAL SQ SCH ×3 (06:22→21:07)
[2018-01-15] MEDS: Insulin LISPRO 300 UNITS/3 ML VIAL SQ SCH ×4 (07:59→21:01)
[2018-01-15] MEDS: Aspirin Enteric Coated 325 MG Tablet PO SCH (09:04)
[2018-01-15] MEDS: Furosemide 40 MG/4 ML VIAL IVP SCH ×2 (09:04→17:30)
[2018-01-15] MEDS: Loratadine 10 MG TABLET PO SCH (09:04)
[2018-01-15] MEDS: Nicotine 21 MG PATCH.TD24 TD SCH (09:13)
[2018-01-15] MEDS: Levofloxacin 500 MG/100 ML 500 MG/100 ML BAG IVPB SCH (17:30)
--- NOTE | 2018-01-15 19:26 | Internal Med Progress Note ---
Date of Encounter: 01/16/18 Time of Encounter: 19:25 - Assessment and plan (1) Acute exacerbation of chronic obstructive airways disease Current Visit: Yes Status: Acute Assessment and plan: The patient is on IV Levaquin. She gets nebulizer treatments with DuoNeb. Her IV Solu-Medrol was started on January 13. (2) Acute respiratory failure with hypoxia and hypercapnia Current Visit: Yes Status: Acute Assessment and plan: The treatment is as outlined above. (3) Hyponatremia Current Visit: Yes Status: Chronic Assessment and plan: Chronic. Her sodium was 128 in 07/25/2015. (4) CHF (congestive heart failure) Current Visit: Yes Status: Suspected Assessment and plan: It is basically chronic diastolic heart failure with possible mild acute worsening. The patient gets Lasix at 40 mg twice a day. We will stop this medication. Qualifiers: Heart failure type: unspecified Heart failure chronicity: unspecified Qualified Code(s): I50.9 - Heart failure, unspecified - Time Spent With Patient Total time spent is greater than 50% in coordination of care (as documented) at patient's floor/unit and/or counseling patient: 25 - 35 minutes - Subjective Interval history: His breathing seems to be better. He continue supplemental oxygen at 3 L/m nasal cannula. He does have cough but not wheezing. Denies chest pain. Denies abdominal pain, nausea and vomiting. He has normal urination. - Constitutional Vitals: Temp Pulse Resp BP Pulse Ox 98.2 F 95 16 143/80 90 01/15/18 15:56 01/15/18 15:56 01/15/18 15:55 01/15/18 15:56 01/15/18 15:55 General appearance: Present: disheveled, A&O X 3, morbidly obese, no acute distress - Eye Eye exam: Present: normal appearance, conjuntiva pink, sclera anicteric - Respiratory Respiratory exam: Present: CTAB. Absent: accessory muscle use, rales, rhonchi, wheezes - Cardiovascular Cardiovascular exam: Present: RRR, +S1, +S2. Absent: diastolic murmur, gallop, rubs, systolic murmur - GI/Abdominal GI/Abdominal exam: Present: normal bowel sounds, soft, no peritoneal signs. Absent: distended, tenderness - Skin Skin exam: Present: dry, intact Internal Medicine: Result - Labs CBC & Chem 7: 01/15/18 04:54 01/15/18 04:54 Labs: Short CBC 01/15/18 Range/Units 04:54 WBC 16.2 H (4.3-11.1) K/mcL Hgb 15.0 (12.9-16.9) g/dL Hct 44.6 (37.5-50.1) % Plt Count 259 (140-400) K/mcL Neutrophils # 14.9 H (1.6-8.9) K/mcL BMP 01/15/18 04:54 Sodium 128 L Potassium 3.8 Chloride 85 L Carbon Dioxide 37 H BUN 39 H Creatinine 1.28 Glucose 138 H Calcium 8.9 Consult Discharge Plan - Plan Referrals: [facility] [Primary Care Provider] - 01/23/18 9:45 am
[2018-01-16] MEDS: Ipratropium/Albuterol Neb 3 ML IH SCH ×6 (03:15→23:30)
[2018-01-16] MEDS: *HR* Heparin 5,000 UNIT/ML VIAL SQ SCH ×3 (05:49→23:13)
[2018-01-16] MEDS: Loratadine 10 MG TABLET PO SCH (09:57)
[2018-01-16] MEDS: Nicotine 21 MG PATCH.TD24 TD SCH (09:57)
[2018-01-16] MEDS: Aspirin Enteric Coated 325 MG Tablet PO SCH (09:57)
[2018-01-16] MEDS: Insulin LISPRO 300 UNITS/3 ML VIAL SQ SCH ×4 (09:58→23:16)
[2018-01-16] MEDS: Levofloxacin 500 MG/100 ML 500 MG/100 ML BAG IVPB SCH (16:28)
[2018-01-16] MEDS: Budesonide/Formoterol 160/4.5 MDI IH SCH (19:46)
--- NOTE | 2018-01-16 21:10 | Internal Med Progress Note ---
Date of Encounter: 01/16/18 Time of Encounter: 21:09 - Assessment and plan (1) Acute exacerbation of chronic obstructive airways disease Current Visit: Yes Status: Acute Assessment and plan: We will continue Levaquin and nebulizer treatments with DuoNeb. We will substitute IV Solu-Medrol with Symbicort inhalations. We will check ABG in the morning. (2) Acute respiratory failure with hypoxia and hypercapnia Current Visit: Yes Status: Acute Assessment and plan: This is secondary to the problems mentioned above. (3) Hyponatremia Current Visit: Yes Status: Chronic Assessment and plan: It is chronic problem. His sodium was 128 in July 2015. We will stop his chlorthalidone. It may be contributing to the hyponatremia. (4) Acute on chronic diastolic (congestive) heart failure Current Visit: Yes Status: Acute Assessment and plan: She was on IV Lasix for a couple days. Her last chest x-ray does not show any pulmonary congestion. - Time Spent With Patient Total time spent is greater than 50% in coordination of care (as documented) at patient's floor/unit and/or counseling patient: 25 - 35 minutes - Subjective Interval history: Pretty much the same like yesterday. He continues to have mild cough but not wheezing. He continue supplemental oxygen at 3 L/m nasal cannula. Denies chest pain. Denies abdominal pain. He has normal urination. - Constitutional Vitals: Temp Pulse Resp BP Pulse Ox 97.8 F 98 16 112/79 97 01/16/18 15:43 01/16/18 15:43 01/16/18 19:47 01/16/18 15:43 01/16/18 19:47 General appearance: Present: disheveled, A&O X 3, morbidly obese, no acute distress - Eye Eye exam: Present: normal appearance, conjuntiva pink, sclera anicteric - Respiratory Respiratory exam: Present: CTAB. Absent: accessory muscle use, rales, rhonchi, wheezes - Cardiovascular Cardiovascular exam: Present: RRR, +S1, +S2. Absent: diastolic murmur, gallop, rubs, systolic murmur - GI/Abdominal GI/Abdominal exam: Present: normal bowel sounds, soft, no peritoneal signs. Absent: distended, tenderness - Skin Skin exam: Present: dry, intact Internal Medicine: Result - Labs CBC & Chem 7: 01/15/18 04:54 01/15/18 04:54 - Impressions Impressions Chest X-Ray 01/15/18 19:29 IMPRESSION: Small left and trace right pleural effusions. Hyperinflated lungs consistent with underlying COPD. D/ / Richard Barboza / Richard Barboza Interpreting Provider: Richard Barboza Consult Discharge Plan - Plan Referrals: [facility],PCP [Primary Care Provider] - 01/23/18 9:45 am
[2018-01-17] MEDS: Ipratropium/Albuterol Neb 3 ML IH SCH ×5 (04:14→20:04)
[2018-01-17 04:19] LABS: ABG Base Excess 10 mEq/L (-2 to 3); ABG HCO3 38 mEq/L (21-27); ABG Oxygen Saturation 94 % (95-98); ABG PCO2 61 mmHg (35-45); ABG PO2 72 mmHg (85-104); ABG TCO2 39 mEq/L (20-26)
[2018-01-17] MEDS: *HR* Heparin 5,000 UNIT/ML VIAL SQ SCH ×3 (05:40→23:00)
[2018-01-17 06:12] LABS: Basophils % 0.2 %; Eosinophils # 0.1 K/mcL (0.0-0.6); Eosinophils % 0.9 %; Hematocrit 46.5 % (37.5-50.1); Hemoglobin 15.4 g/dL (12.9-16.9); Immature Granulocytes % 0.6 % (0-4); Lymphocytes # 1.3 K/mcL (0.6-4.6); Lymphocytes % 11.6 %; Mean Corpuscular HGB Conc 33.1 g/dL (31.6-35.5); Mean Corpuscular Hemoglobin 29.8 pg (28.0-33.3); Mean Corpuscular Volume 89.9 fL (83.0-100.0); Mean Platelet Volume 8.9 fL (9.4-12.4); Monocytes # 1.1 K/mcL (0.0-1.3); Monocytes % 9.8 %; Neutrophils # 8.6 K/mcL (1.6-8.9); Platelet Count 227 K/mcL (140-400); Red Blood Count 5.17 M/mcL (4.19-5.50); Red Cell Distribution Width 13.3 % (11.5-14.5); Segmented Neutrophils % 76.9 %
[2018-01-17 06:29] LABS: BUN/Creatinine Ratio 33 (6-26); Blood Urea Nitrogen 44 mg/dL (8-23); Calcium 8.9 mg/dL (8.6-10.3); Carbon Dioxide 38 mEq/L (23-29); Chloride 86 mEq/L (98-107); Glucose 102 mg/dL (70-105); Magnesium 2.3 mg/dL (1.6-2.6); Osmolality,Calculated 277 (280-300); Potassium 4.1 mEq/L (3.5-5.1); Sodium 128 mEq/L (136-145); eGFR For African Americans > 60 (> 60); eGFR For Non-African Americans 53 (> 60)
[2018-01-17] MEDS: Budesonide/Formoterol 160/4.5 MDI IH SCH ×2 (07:41→20:04)
[2018-01-17] MEDS: Insulin LISPRO 300 UNITS/3 ML VIAL SQ SCH ×4 (08:00→23:00)
[2018-01-17] MEDS ORDERED: Furosemide 40 MG TABLET PO SCH (09:00)
[2018-01-17] MEDS: Nicotine 21 MG PATCH.TD24 TD SCH (10:30)
[2018-01-17] MEDS: Aspirin Enteric Coated 325 MG Tablet PO SCH (10:31)
[2018-01-17] MEDS: Loratadine 10 MG TABLET PO SCH (10:31)
--- NOTE | 2018-01-17 11:43 | Cardiology Consult Note ---
<Brando Butts - Last Filed: 01/17/18 13:31> Date of Encounter: 01/17/18 Time of Encounter: 11:40 Assessment and Plan (1) Severe aortic stenosis Current Visit: Yes Status: Acute Per Cardiology: Per discussion with Dr. Hall, echo shows severe and severe MS with preserved EF. Current echo report unable to view results-- report being edited by Dr. Hall. Patient reports known awareness to stiffening and leaking valves [facility] He declined further evaluation at this time. We discussed potential catheterization. We discussed potential surgical evaluation or TAVR. He does not want further heart surgeries at this time. Reports he will [facility]. Discussed and reviewed with Dr. Feldman. Cardiology will sign off, reconsult as needed, [facility] with [facility] as [facility]. (2) CAD (coronary artery disease) Current Visit: Yes Status: Chronic Per Cardiology: Hx CAD/CABG. had CABG in 2011 Dr. Gunter. Denies stress testing or catheterization since that time. Patient chest pain-free. Per Dr. Hall, EF preserved on echo. Chest pain-free. Does not desire to proceed with further ischemic evaluation at this time. On asa, statin, BB, ARB. Qualifiers: Coronary Disease-Associated Artery/Lesion type: bypass graft [place] vs. transplanted heart: [place] heart Associated angina: without angina Qualified Code(s): I25.810 - Atherosclerosis of coronary artery bypass graft(s) without angina pectoris Discussion w patient/family: The assessment and plan as outlined above was discussed with the patient who expressed understanding and agreement. All questions were answered. Thank you for involving us in the care of your patient. Please call with any questions. History of Present Illness Consult date: 01/17/18 Requesting physician: Trenton Smith Consult reason: Severe and Severe MS Chief complaint: SOB History of present illness: Mr. Ibanez is a 72 year old male with a relevant past medical history of CAD with CABG, hypertension, nicotine abuse from the [place], COPD. Last seen by cardiology [place] June 2016. Cardiology consult for findings of severe aortic stenosis and severe mitral stenosis on echo. Patient reports increased shortness of breath at rest and exertion over the past few months. He denies any chest pain symptoms. He does reports he did utilize 3 nitroglycerin glycerin pills last week due to shortness of breath. He denies any syncope, dizziness, palpitations, falls. Denies any active bleeding or blood loss. Denies any fatigue worse than baseline. He reports utilizes oxygen at home for COPD. Used to smoke one pack per day and has been doing so for 50 years. [facility] and aware that he has leaking and stiff heart valves. He reports he does not want further cardiac surgery. Past Med Surg Social Fam HX - Past Medical History Attestation: Yes The following information was validated with the patient. Source: patient, old records reviewed Medical history: CHF, COPD, coronary artery disease, GERD, hyperlipidemia, hypertension, other Additional medical history: Pulmonary hypertension Psychiatric history: no psych history - Past Surgical History Surgical History: coronary bypass (CABG) (2011), other Additional surgical history: open heart surgery - Social History Smoking Status: Current every day smoker Smokeless Tobacco Status: No Alcohol use: none Drug use: none - Family History Mother Family Member Ethnicity: Non- Living Status: Hx Family Cardiac Disorders: Yes Hx Family Cancer: Yes Hx Family Endocrine Disorder: Yes Medications and Allergies Aspirin/Calcium Carbonate/Mag [Aspirin Buffered 325 mg Tab] 325 mg PO DAILY 05/22 [History] Chlorthalidone 50 mg PO QAM 07/17/15 [History] Ipratropium/Albuterol Sulfate [Combivent Respimat Inhal [place]] 1 puff IH QID [History] Atorvastatin Calcium [Lipitor] 80 mg PO HS 01/12/18 [History] Loratadine [Claritin] 10 mg PO DAILY 01/12/18 [History] Losartan Potassium [Cozaar] 50 mg PO BID 01/12/18 [History] Metoprolol Tartrate [Metoprolol Tartrate] 50 mg PO BID 01/12/18 [History] Sildenafil Citrate [Revatio] 20 mg PO TID 01/12/18 [History] 3 Allergy/AdvReac Type Severity Reaction Status Date / Time No Known Allergies Allergy Verified 07/17/15 08:42 All Systems Review: The remainder of the systems were reviewed and are negative - Cardiovascular Cardiovascular: as per HPI, dyspnea at rest, dyspnea on exertion - Respiratory Respiratory: dyspnea Physical Examination Vital Signs, Last 4 Hours Temp Pulse Resp BP Pulse Ox 01/17/18 11:31 98.3 F 82 16 130/77 95 01/17/18 11:09 16 94 01/17/18 07:42 18 92 General: Conversant, No Apparent Distress HEENT: Atraumatic, Normocephaly, Mucus Membranes Moist Neck: No JVD, Normal carotid pulses Cardiac: Reg Rate and Rhythm, Normal S1 and S2, No Murmur (grade II-III murmur) Lungs: Normal Breath Sounds, No Wheeze, Rales, Rhonchi Neuro: Alert and responsive, No focal deficits noted Abdomen: Soft, Non-Tender, Other (obese) Skin: No rashes noted on visualized skin Musculoskeletal: No Chest Wall Tenderness Extremities: No Clubbing, No Cyanosis, Normal Pulses, Other (+2 pitting edema bilateral) Results 01/17/18 05:38 01/17/18 05:38 Lab Results Laboratory Tests 01/13/18 01/17/18 06:16 05:38 Creatinine 1.33 H Est GFR (Non-Af Amer) 53 L Hemoglobin A1c 6.9 H Magnesium 2.3 ITS Impressions Chest X-Ray 01/12/18 20:59 IMPRESSION: 1. Slight increase in diffuse interstitial prominence, which could represent some mild edema superimposed on COPD. 2. Stable cardiomegaly. 3. Stable blunting of the left costophrenic angle with a small effusion or pleural thickening. D/ : / 01/12/2018 21:52:16 Richard Prasad MD / denny Interpreting Provider: Richard Prasad MD Echocardiogram 01/14/18 10:44 Impressions: Findings: Chest X-Ray 01/15/18 19:29 IMPRESSION: Small left and trace right pleural effusions. Hyperinflated lungs consistent with underlying COPD. D/ / Richard Barboza / Richard Barboza Interpreting Provider: Richard Barboza Intake & Output 01/14/18 01/15/18 01/16/18 01/17/18 23:59 23:59 23:59 23:59 Intake Total 2380 / 2380 1460 / 1460 600 / 600 480 / 480 Output Total 4085 / 4085 3835 / 3835 1800 / 1800 1999 / 1999 Balance -1705 / -1705 -2375 / -2375 -1200 / -1200 -1520 / -1520 Weight 124 kg 122.4 kg 123 kg Active Medications Acetaminophen (Tylenol) 650 mg PO Q6HR PRN PRN Reason: Mild Pain/Fever Stop: 07/14/18 22:47 Albuterol/Ipratropium (Duoneb) 3 ml IH [id number] ISH Stop: 07/15/18 12:01 Last Admin: 01/17/18 11:08 Dose: 3 ml Albuterol/Ipratropium (Duoneb) 3 ml IH Q2HR PRN PRN Reason: Dyspnea Stop: 07/15/18 20:23 Aspirin (Aspirin Ec) 325 mg PO DAILY [facility] Stop: 07/15/18 09:01 Last Admin: 01/17/18 10:31 Dose: 325 mg Atorvastatin Calcium (Lipitor) 80 mg PO HS [facility] Stop: 07/15/18 21:01 Last Admin: 01/16/18 23:12 Dose: 80 mg Budesonide/Formoterol Fumarate (Symbicort) 2 puff IH BIDR ISH PRN Reason: Protocol Stop: 07/18/18 22:01 Last Admin: 01/17/18 07:41 Dose: 2 puff Dextrose/Water (Dextrose 50% (Syg)) 25 ml IVP AD PRN PRN Reason: Hypoglycemia Stop: 07/14/18 23:14 Furosemide (Lasix) 40 mg PO DAILY [facility] Stop: 07/19/18 09:01 Glucagon (Glucagen) 1 mg IM ONCE PRN PRN Reason: Hypoglycemia Stop: 07/14/18 23:14 Glucose (Gluctose) 15 gm PO ONCE PRN PRN Reason: Hypoglycemia Stop: 07/14/18 23:14 Glucose (Gluctose) 30 gm PO ONCE PRN PRN Reason: Hypoglycemia Stop: 07/14/18 23:14 Guaifenesin (Mucinex) 1,200 mg PO BID [facility] Stop: 07/18/18 11:01 Last Admin: 01/17/18 10:31 Dose: 1,200 mg Heparin Sodium (Porcine) (Heparin) 5,000 unit SQ Q8HCO [facility] Stop: 07/15/18 06:01 Last Admin: 01/17/18 05:40 Dose: 5,000 unit Hydralazine HCl (Hydralazine) 10 mg IVP Q6HR PRN PRN Reason: Hypertension Stop: 07/14/18 22:44 Last Admin: 01/13/18 00:21 Dose: 10 mg Levofloxacin/Dextrose (Levaquin Premix 500mg/100ml) 500 mg in 100 mls @ 100 mls /hr IVPB Q24H ISH PRN Reason: Protocol Stop: 07/15/18 18:01 Last Admin: 01/16/18 16:28 Dose: 100 mls/hr Dextrose (Dextrose 5%) 1,000 mls @ 100 mls/hr IVC .Q10H PRN PRN Reason: HYPOGLYCEMIA Stop: 07/14/18 23:14 Insulin Human Lispro (Humalog) 0 units SQ HS ISH PRN Reason: Protocol Stop: 07/15/18 21:01 Last Admin: 01/16/18 23:16 Dose: Not Given Insulin Human Lispro (Humalog) 0 units SQ TIDAC ISH PRN Reason: Protocol Stop: 07/15/18 07:31 Last Admin: 01/16/18 16:29 Dose: Not Given Loratadine (Claritin) 10 mg PO DAILY ISH PRN Reason: Protocol Stop: 07/15/18 09:01 Last Admin: 01/17/18 10:31 Dose: 10 mg Losartan Potassium (Cozaar) 50 mg PO BID [facility] Stop: 07/15/18 09:01 Last Admin: 01/17/18 10:31 Dose: 50 mg Metoprolol Tartrate (Lopressor) 50 mg PO BID [facility] Stop: 07/15/18 09:01 Last Admin: 01/17/18 10:31 Dose: 50 mg Naloxone HCl (Narcan) 0.4 mg IVP Q2MIN PRN PRN Reason: SEE COMMENTS Stop: 07/14/18 22:47 Nicotine (Nicoderm) 21 mg TD DAILY ISH PRN Reason: Protocol Stop: 07/14/18 23:16 Last Admin: 01/17/18 10:30 Dose: 21 mg Ondansetron HCl (Zofran) 4 mg IVP Q6H PRN; Protocol PRN Reason: Nausea And Vomiting Stop: 07/14/18 22:44 Potassium Chloride (Potassium Chloride) 20 meq PO BID [facility] Stop: 07/18/18 21:01 Last Admin: 01/17/18 10:31 Dose: 20 meq - Imaging and Cardiology Echo: report reviewed - EKG Interpretation EKG results cardiology: personally reviewed (comparable to baseline) Consult Discharge Plan - Plan [facility]errals[facility]Primary Care Provider[facility] - 01/23/18 9:45 am <Jose De Jesus Feldman - Last Filed: 01/17/18 14:32> Date of Encounter: 01/17/18 - Attending Attestation I have personally performed a face to face evaluation on this patient. I have reviewed and agree with the care plan. History and Exam by me shows: 72 YOM with severe and Severe MS presents with SOB/ALLEN, declines any cardiac procedures at this time. D/W pt TAVR as an option and he will consider talkinh to Dr. Evans about it in follow up. Patient understands R/B/A and is not willing to proceed with work up at this time including a LHC. Assessment and Plan Discussion w patient/family: The assessment and plan as outlined above was discussed with the patient and/or family members who expressed understanding and agreement. All questions were answered. Thank you for involving us in the care of your patient. Please call with any questions. History of Present Illness History of present illness: Mr. Ibanez is a 72 year old male All Systems Review: The remainder of the systems were reviewed and are negative Physical Examination Vital Signs, Last 4 Hours Temp Pulse Resp BP Pulse Ox 01/17/18 13:17 98 01/17/18 11:31 98.3 F 82 16 130/77 95 01/17/18 11:09 16 94 Results 01/17/18 05:38 01/17/18 05:38 Lab Results 01/17/18 01/17/18 05:38 05:38 WBC 11.1 Hgb 15.4 Hct 46.5 Plt Count 227 Sodium 128 L Potassium 4.1 Chloride 86 L Carbon Dioxide 38 H BUN 44 H Creatinine 1.33 H Glucose 102 Calcium 8.9 Magnesium 2.3
--- NOTE | 2018-01-17 12:57 | Internal Med Progress Note ---
Date of Encounter: 01/17/18 Time of Encounter: 12:55 - Assessment and plan (1) HTN (hypertension) Current Visit: Yes Status: Chronic Assessment and plan: Now controlled Continue metoprolol, losartan, Hold lasix due to elevated Creatinine, hold chlorthalidone while giving lasix hydralazine prn Qualifiers: Hypertension type: essential hypertension Qualified Code(s): I10 - Essential (primary) hypertension (2) Tobacco abuse Current Visit: Yes Status: Chronic Assessment and plan: encourage cessation, on NRT (3) Acute exacerbation of chronic obstructive airways disease Current Visit: Yes Status: Acute Assessment and plan: Continue levaquin, duonebs, prednisone (4) DVT prophylaxis Current Visit: Yes Status: Acute Assessment and plan: Heparin subcutaneous (5) Hyponatremia Current Visit: Yes Status: Chronic Assessment and plan: hypoosmolar, possibly due to fluid overload chronic, stable continue to monitor (6) Acute respiratory failure with hypoxia Current Visit: Yes Status: Acute Assessment and plan: Multifactorial: COPDE CHFE Continue O2 by ND Goal O2 is 88-92%, patient is known severe COPD (7) CHF exacerbation Current Visit: Yes Status: Acute Assessment and plan: ECHO from outside read 'moderately reduced EF, mild AI, mild MR, Pulm HTN" Continue lasix IV , increase to TID Strict I/Os, I/O -10L Daily weight Fluid restriction ECHO report pending Cardio eval pending Qualifiers: Heart failure type: unspecified Qualified Code(s): I50.9 - Heart failure, unspecified (8) Pre-diabetes Current Visit: Yes Status: Acute Assessment and plan: AC 6.9 See DM for mgt (9) CAD (coronary artery disease) Current Visit: Yes Status: Chronic Assessment and plan: Continuie ASA, Ststin, ARB, BB Qualifiers: Coronary Disease-Associated Artery/Lesion type: bypass graft [place] vs. transplanted heart: [place] heart Associated angina: without angina Qualified Code(s): I25.810 - Atherosclerosis of coronary artery bypass graft(s) without angina pectoris (10) Diabetes Current Visit: Yes Status: Chronic Assessment and plan: FS ACHS Sliding scale A1C 6.9 ADA diet Qualifiers: Diabetes mellitus type: type 2 Diabetes mellitus detention insulin use: without detention use Diabetes mellitus complication status: without complication Qualified Code(s): E11.9 - Type 2 diabetes mellitus without complications (11) Morbid obesity with BMI of 40.0-44.9, adult Current Visit: Yes Status: Chronic Assessment and plan: lifestyle modification (12) Severe aortic stenosis Current Visit: Yes Status: Acute Assessment and plan: Pending cardio eval and final ECHO report - Time Spent With Patient Total time spent is greater than 50% in coordination of care (as documented) at patient's floor/unit and/or counseling patient: - Subjective Interval history: Seen and evaluated at the bedside reports improved breathing Report from prior ECHO noted-reported as "moderately rediced EF, mild AI, aortic sclerosis, mild MR, LVH, Pulm HTN', no numbers. PFT report: Severe COPD Repeat ECHO pending-discussed with Dr. Hall as report cannot be viewed-stated patient has sever MS and Cardiology eval pending I/O -10L No new complains Will hold lasix today due to creatinine of 1.3 Patient also qualified for home O2 - Constitutional Vitals: Temp Pulse Resp BP Pulse Ox 98.3 F 82 16 130/77 95 01/17/18 11:31 01/17/18 11:31 01/17/18 11:31 01/17/18 11:31 01/17/18 11:31 General appearance: Present: disheveled, A&O X 3, morbidly obese, no acute distress - Head Head exam: Present: atraumatic, normocephalic - Eye Eye exam: Present: PERRL, conjuntiva pink, sclera anicteric Pupils: Present: PERRL - Neck Neck exam general surgery: Present: supple, trachea midline. Absent: lymphadenopathy - Respiratory Respiratory exam: Present: CTAB. Absent: accessory muscle use, rales, rhonchi, wheezes - Cardiovascular Cardiovascular exam: Present: RRR, +S1, +S2, systolic murmur. Absent: diastolic murmur, gallop, rubs - GI/Abdominal GI/Abdominal exam: Present: normal bowel sounds, soft, no peritoneal signs. Absent: distended, tenderness - Extremities Exam Extremities exam: Present: pedal edema (2+ piting pedal edema), warm, radial pulses palpable and symmetrical. Absent: calf tenderness, cyanotic - Neurological Exam Neurological exam: Present: alert, CN II-XII intact, oriented X3, no focal deficits. Absent: pronater drift, facial droop, speech deficit - Skin Skin exam: Present: dry, intact Internal Medicine: Result - Labs CBC & Chem 7: 01/17/18 05:38 01/17/18 05:38 Labs: Short CBC 01/17/18 Range/Units 05:38 WBC 11.1 (4.3-11.1) K/mcL Hgb 15.4 (12.9-16.9) g/dL Hct 46.5 (37.5-50.1) % Plt Count 227 (140-400) K/mcL Neutrophils # 8.6 (1.6-8.9) K/mcL BMP 01/17/18 05:38 Sodium 128 L Potassium 4.1 Chloride 86 L Carbon Dioxide 38 H BUN 44 H Creatinine 1.33 H Glucose 102 Calcium 8.9 - ABG Interpretation ABG results: ABG ABG pH 7.40 pH Units (7.32-7.45) 01/17/18 04:15 ABG pCO2 61 mmHg (35-45) H 01/17/18 04:15 ABG pO2 72 mmHg (85-104) L 01/17/18 04:15 ABG O2 Saturation 94 % (95-98) L 01/17/18 04:15 - Impressions Impressions Echocardiogram 01/14/18 10:44 Impressions: Findings: ADDENDUM: 01/17/18 1142 Impressions: Severe mitral stenosis. Severe aortic stenosis. Mild pulmonary hypertension. Severe concentric left ventricular hypertrophy. LVEF 65-70%. Consultation and primary team notified Left Ventricular Wall Motion: Rest Echo Findings The apex, apical inferior, mid inferior, basal inferior, apical anterior, mid anterior, basal anterior, apical septal, mid inferior septal, basal inferior septal, apical lateral, mid anterior lateral, basal anterior lateral, mid anterior septal, mid inferior lateral, basal anterior septal and basal inferior lateral feliz were hyperkinetic. Findings: Mitral Valve * Mildly calcified mitral valve leaflets. * Severe mitral stenosis. * Mean transmitral gradient is mean 11mmHg mmHg. * Trace mitral regurgitation. Left Atrium * Severely dilated left atrium. Pulmonic Valve * No pulmonic stenosis. * No pulmonic regurgitation. * Pulmonic valve is not well visualized. Tricuspid Valve * Trace tricuspid regurgitation. * No tricuspid stenosis. * Estimated RVSP is 42 mmHg. * Mild pulmonary hypertension. * Mild tricuspid regurgitation. * Estimated RA pressure is 5-10 mmHg. Aortic Valve * Aortic valve not well visualized. * No aortic regurgitation. * Severe aortic stenosis. * Peak and mean gradients are 73 41 mmHg, respectively. * Trace aortic regurgitation. Left Ventricle * Severe concentric left ventricular hypertrophy. * Indeterminate diastolic function. * LVEF 65-70%. Pericardium * The pericardium appears normal. Aorta * Normally sized aortic root. Interatrial Septum * No evidence of PFO by color Doppler. Right Atrium * Normal right atrial size. IVC * The IVC is dilated. * < 50% respiratory change. ECG Findings * Normal sinus rhythm. Study Quality * Technically adequate exam. Right Ventricle * Normal right ventricular structure and function. Consult Discharge Plan - Plan [facility]errals: [facility] [Primary Care Provider[facility] - 01/23/18 9:45 am
[2018-01-18] MEDS: Ipratropium/Albuterol Neb 3 ML IH SCH ×4 (00:09→11:20)
[2018-01-18 05:07] LABS: BUN/Creatinine Ratio 32 (6-26); Blood Urea Nitrogen 33 mg/dL (8-23); Carbon Dioxide 37 mEq/L (23-29); Chloride 90 mEq/L (98-107); Glucose 101 mg/dL (70-105); Potassium 4.6 mEq/L (3.5-5.1); Sodium 132 mEq/L (136-145); eGFR For African Americans > 60 (> 60); eGFR For Non-African Americans > 60 (> 60)
[2018-01-18 05:08] LABS: Osmolality,Calculated 281 (280-300)
[2018-01-18] MEDS: *HR* Heparin 5,000 UNIT/ML VIAL SQ SCH (05:39)
[2018-01-18] MEDS: Budesonide/Formoterol 160/4.5 MDI IH SCH (08:00)
[2018-01-18 08:10] VITALS: BP 132/84
[2018-01-18] MEDS ORDERED: Aspirin Enteric Coated 81 MG Tablet PO SCH (09:00)
--- NOTE | 2018-01-18 10:00 | Discharge Summary ---
- NOTES TO OUTPATIENT PROVIDER Notes to Outpatient Provider: The patient was admitted for acute hypoxic respiratory failure secondary to COPD exacerbation, CHF exacerbation with fluid overload. Findings on admission included severe COPD, severe aortic stenosis, mitral stenosis, preserved ejection fraction and diabetes with A1c of 6.9. He did not require insulin inpatient, recommend lifestyle modification. The patient is discharged home after adequate diuresis on Lasix. Chlorthalidone has been discontinued due to prescription of Lasix. He has opted to follow up with cardiology as outpatient regarding intervention for severe aortic stenosis. He has completed a course of steroids and antibiotics for COPD exacerbation. Tobacco cessation recommended. Recommend repeat A1c. Date of Encounter: 01/18/18 Time of Encounter: 09:57 - Discharge Diagnosis (1) HTN (hypertension) Priority: Secondary Status: Chronic Qualifiers: Hypertension type: essential hypertension Qualified Code(s): I10 - Essential (primary) hypertension (2) Tobacco abuse Priority: Secondary Status: Chronic (3) Acute exacerbation of chronic obstructive airways disease Priority: Primary Status: Acute (4) DVT prophylaxis Priority: Primary Status: Acute (5) Hyponatremia Priority: Secondary Status: Chronic (6) Acute respiratory failure with hypoxia Priority: Primary Status: Acute (7) CHF exacerbation Priority: Primary Status: Acute Qualifiers: Heart failure type: unspecified Qualified Code(s): I50.9 - Heart failure, unspecified (8) Pre-diabetes Priority: Secondary Status: Chronic (9) CAD (coronary artery disease) Priority: Secondary Status: Chronic Qualifiers: Coronary Disease-Associated Artery/Lesion type: bypass graft [place] vs. transplanted heart: [place] heart Associated angina: without angina Qualified Code(s): I25.810 - Atherosclerosis of coronary artery bypass graft(s) without angina pectoris (10) Diabetes Priority: Primary Status: Chronic Qualifiers: Diabetes mellitus type: type 2 Diabetes mellitus recruiting coordinator insulin use: without recruiting coordinator use Diabetes mellitus complication status: without complication Qualified Code(s): E11.9 - Type 2 diabetes mellitus without complications (11) Morbid obesity with BMI of 40.0-44.9, adult Priority: Secondary Status: Chronic (12) Severe aortic stenosis Priority: Primary Status: Acute Hospital course: Mr. Ibanez is a 72 year old male Past medical history of tobacco abuse, hypertension, morbid obesity, severe COPD by PFT, CHF who was admitted for fluid overload, acute respiratory failure with hypoxia secondary to COPD exacerbation and CHF exacerbation. Workup on admission included chest x-ray, CBC, chemistry, reveals pulmonary edema, no leukocytosis, chronic hyponatremia respectively. Patient had an outpatient PFT which showed severe COPD. Echocardiogram repeated inpatient showed severe aortic stenosis, EF of 65%, severe mitral stenosis, mild pulmonary hypertension. The patient has an adequate diuresis with documented weight loss and negative output of about 12 L. He has also completed a course of steroids and Levaquin. Cardiology was consulted due to echocardiogram findings, patient opted for outpatient cardiology follow-up and eventual consultation for aortic valve replacement as outpatient. He is seen and evaluated this morning, he has no new complaints, she is ambulatory, his chest is clear to auscultation, his cough has improved significantly. He still has some pedal edema. He is clinically stable and will be discharged home on Lasix daily, nicotine patches for tobacco cessation, Symbicort, and potassium. His home medications for hypertension remain the same except chlorthalidone was discontinued and replaced with Lasix. Tobacco cessation counseling done for 3 minutes. The patient continues to require oxygen on ambulation, he is discharged home on oxygen. Follow-up with PCP and cardiology. Discharge discussed with: patient, nurse, social work, case management, furniture sales consultant Time spent discussing smoking cessation with patient: 3 to 10 minutes - Time Spent with Patient Total time spent providing and/or coordinating discharge services: Greater than 30 minutes - Discharge Medications Prescriptions: Budesonide/Formoterol 160/4.5 [Symbicort 160/4.5] 2 puff IH BIDR #2 inhaler Furosemide [Lasix] 40 mg PO DAILY #30 tablet Nicotine Patch [Nicoderm] 21 mg TD DAILY #20 patch.td24 Potassium Chloride 20 meq PO DAILY #30 tab.er.prt Home Medications: Aspirin/Calcium Carbonate/Mag [Aspirin Buffered 325 mg Tab] 325 mg PO DAILY 05/22 [History] Ipratropium/Albuterol Sulfate [Combivent Respimat Inhal [place]] 1 puff IH QID [History] Atorvastatin Calcium [Lipitor] 80 mg PO HS 01/12/18 [History] Loratadine [Claritin] 10 mg PO DAILY 01/12/18 [History] Losartan Potassium [Cozaar] 50 mg PO BID 01/12/18 [History] Metoprolol Tartrate [Metoprolol Tartrate] 50 mg PO BID 01/12/18 [History] Sildenafil Citrate [Revatio] 20 mg PO TID 01/12/18 [History] Budesonide/Formoterol 160/4.5 [Symbicort 160/4.5] 2 puff IH BIDR #2 inhaler [Rx] Furosemide [Lasix] 40 mg PO DAILY #30 tablet 01/18/18 [Rx] Nicotine Patch [Nicoderm] 21 mg TD DAILY #20 patch.td24 01/18/18 [Rx] Potassium Chloride 20 meq PO DAILY #30 tab.er.prt 01/18/18 [Rx] Allergies/Adverse Reactions: 3 Allergy/AdvReac Type Severity Reaction Status Date / Time No Known Allergies Allergy Verified 07/17/15 08:42 Date of admission: 01/12/18 23:23 [facility] care physician: [facility] Discharging clinician: Trenton Smith Anticipated date of discharge: 01/18/18 - Constitutional Vitals: Temp Pulse Resp BP Pulse Ox 97.4 F L 93 16 132/84 98 01/18/18 08:08 01/18/18 08:08 01/18/18 08:08 01/18/18 08:08 01/18/18 08:08 General appearance: Present: disheveled, A&O X 3, morbidly obese, no acute distress - Head Head exam: Present: atraumatic, normocephalic - Eye Eye exam: Present: PERRL, conjuntiva pink, sclera anicteric Pupils: Present: PERRL - Neck Neck exam general surgery: Present: supple, trachea midline. Absent: lymphadenopathy - Respiratory Respiratory exam: Present: CTAB. Absent: accessory muscle use, rales, rhonchi, wheezes - Cardiovascular Cardiovascular exam: Present: RRR, +S1, +S2, systolic murmur. Absent: diastolic murmur, gallop, rubs - GI/Abdominal GI/Abdominal exam: Present: normal bowel sounds, soft, no peritoneal signs. Absent: distended, tenderness - Extremities Exam Extremities exam: Present: pedal edema - Neurological Exam Neurological exam: Present: alert, CN II-XII intact, oriented X3, no focal deficits. Absent: pronater drift, facial droop, speech deficit - Skin Skin exam: Present: dry, intact - Patient Status Disposition: Home, Self-Care Condition: Good Functional capacity at discharge: independent ambulation Overall status at discharge: patient is progressing back to baseline - Discharge Instructions Follow Up With: LARRY,PCP [Primary Care Provider] - 01/23/18 9:45 am - Diet and Activity Activity: resume usual activities as tolerated, wear oxygen at all times Diet: diabetic diet, low fat, low cholesterol, low salt diet
[2018-01-18] MEDS ORDERED: levoFLOXacin 500 MG TABLET PO ONE (10:02)
[2018-01-18] MEDS ORDERED: predniSONE 20 MG TABLET PO ONE (10:04)
[2018-01-18] MEDS: Nicotine 21 MG PATCH.TD24 TD SCH (10:25)
[2018-01-18] MEDS: Insulin LISPRO 300 UNITS/3 ML VIAL SQ SCH (10:25)
[2018-01-18] MEDS: Loratadine 10 MG TABLET PO SCH (10:25)
== END 2018-01-18 12:27 | disposition home or self-care (01) | DRG 291 ==
LOC: EMEROO 20:48 → 2NNU 20:48 → SUATTDRO 23:23 → 2NNU 23:33 → 2NENU 01-13 14:16
PROVIDERS: ADMIT Internal Medicine; ATTEND Internal Medicine

== ENCOUNTER 2020-07-07 22:19 | Inpatient (IN) ==
[~2020-07-07 22:19] MED LIST: *HR* Etomidate 20 MG/10 ML AMPUL IVP ONE; *HR* Rocuronium Bromide 50 MG/5 ML VIAL IVP ONE
[2020-07-07] MEDS ORDERED: Isovue-370 500 ML BOTTLE IVP ONE (22:43)
[2020-07-07 22:49] LABS: Basophils % 0.2 %; Eosinophils # 3.9 K/mcL (0.0-0.6); Eosinophils % 22.9 %; Hematocrit 32.6 % (37.5-50.1); Hemoglobin 11.3 g/dL (12.9-16.9); Immature Granulocytes % 1.1 % (0-4); Lymphocytes # 0.7 K/mcL (0.6-4.6); Lymphocytes % 4.2 %; Mean Corpuscular HGB Conc 34.7 g/dL (31.6-35.5); Mean Corpuscular Hemoglobin 29.1 pg (28.0-33.3); Mean Platelet Volume 8.4 fL (9.4-12.4); Monocytes % 5.9 %; Neutrophils # 11.1 K/mcL (1.6-8.9); Platelet Count 311 K/mcL (140-400); Red Blood Count 3.88 M/mcL (4.19-5.50); Red Cell Distribution Width 14.1 % (11.5-14.5); Segmented Neutrophils % 65.7 %; White Blood Count 16.9 K/mcL (4.3-11.1)
[2020-07-07 23:06] LABS: INR 1.1; Prothrombin Time 12.8 Seconds (9.4-12.1)
[2020-07-07 23:10] LABS: Activated Partial Thrombo Time 26.8 Seconds (26.0-36.0)
[2020-07-07 23:13] LABS: Platelet Estimate Normal (Normal)
[2020-07-07 23:18] LABS: Alanine Aminotransferase 43 Units/L (7-52); Albumin 4.2 g/dL (3.5-5.7); Albumin/Globulin Ratio 1.2 (1.1-2.2); Alkaline Phosphatase 146 Units/L (34-104); Aspartate Amino Transferase 128 Units/L (13-39); BUN/Creatinine Ratio 30 (6-26); Bilirubin,Direct 0.2 mg/dL (0.0-0.2); Bilirubin,Indirect 0.4 mg/dL (0.0-1.0); Bilirubin,Total 0.6 mg/dL (0.3-1.0); Blood Urea Nitrogen 23 mg/dL (8-23); Calcium 8.6 mg/dL (8.6-10.3); Carbon Dioxide 34 mEq/L (23-29); Chloride 71 mEq/L (98-107); Ethanol < 10 mg/dL (Less than 10); Globulin 3.4 g/dL (2.4-3.5); Glucose 121 mg/dL (70-105); Osmolality,Calculated 241 (280-300); Potassium 4.1 mEq/L (3.5-5.1); Sodium 113 mEq/L (136-145); Total Protein 7.6 g/dL (6.4-8.9); eGFR For African Americans > 60 (> 60); eGFR For Non-African Americans > 60 (> 60)
[2020-07-07 23:19] LABS: Troponin I 0.04 ng/mL (< 0.04)
[2020-07-07 23:25] LABS: Creatine Kinase 4008 Units/L (30-223); Thyroid Stimulating Hormone 1.653 mcIU/mL (0.340-5.600)
[2020-07-07 23:33] LABS: ABG Base Excess 9 mEq/L (-2 to 3); ABG HCO3 38 mEq/L (21-27); ABG Oxygen Saturation 100 % (95-98); ABG PCO2 76 mmHg (35-45); ABG PH 7.31 pH Units (7.32-7.45); ABG PO2 545 mmHg (85-104); ABG TCO2 40 mEq/L (20-26); Blood Gas Modality ASSIST CONTROL; Blood Gas VT 500 cc
[2020-07-07 23:44] LABS: Amphetamine Screen,Urine Negative ng/mL (Cutoff=1000); Barbiturate Screen,Urine Negative ng/mL (Cutoff=200); Benzodiazepines Screen,Urine Negative ng/mL (Cutoff=200); Cannabinoid Screen,Urine Negative ng/mL (Cutoff = 50); Cocaine Screen,Urine Negative ng/mL (Cutoff= 300); Opiate Screen,Urine Negative ng/mL (Cutoff=300); Phencyclidine Screen,Urine Negative ng/mL (Cutoff=25)
[2020-07-07] MEDS ORDERED: niCARdipine 20 MG/200 ML MLS IVC ONE (23:47)
[2020-07-07 23:53] LABS: Bilirubin,Urine Negative (Negative); Blood,Urine Moderate (Negative); Clarity,Urine Clear (Clear); Color,Urine Yellow (Yellow); Glucose,Urine (UA) Normal (Normal); Hyaline Casts,Urine Moderate per lpf (None Seen); Ketones,Urine Negative (Negative); Leukocyte Esterase,Urine Negative (Negative); Mucus,Urine Few per lpf (None-Few); Nitrite,Urine Negative (Negative); Protein,Urine 50 mg/dL (Neg-Trace); Specific Gravity,Urine 1.021 (1.010-1.025); Squamous Epithelial Cell,Urine Few per hpf (None-Few); Urobilinogen,Urine Normal (Normal); WBC,Urine 0-3 per hpf (0-3); White Blood Cell Casts,Urine Few per lpf (None Seen)
[2020-07-07] MEDS: niCARdipine 20 MG/200 ML MLS IVC SCH (23:54)
[2020-07-08] MEDS ORDERED: Artificial Tears SOLN 15 ML BOTTLE BOTH EYES PRN ×2 (01:40→02:10)
[2020-07-08] MEDS ORDERED: Naloxone 0.4 MG/ML INJ IVP PRN (01:40)
[2020-07-08 02:26] LABS: ABG Base Excess 9 mEq/L (-2 to 3); ABG HCO3 40 mEq/L (21-27); ABG Oxygen Saturation 92 % (95-98); ABG PCO2 97 mmHg (35-45); ABG PH 7.23 pH Units (7.32-7.45); ABG PO2 82 mmHg (85-104); ABG TCO2 43 mEq/L (20-26); Blood Gas Modality ASSIST CONTROL; Blood Gas VT 500 cc
[2020-07-08] MEDS ORDERED: *HR* Midazolam HCl 2 MG/2 ML VIAL IVP ONE (02:40)
[2020-07-08] MEDS ORDERED: *HR* Midazolam HCl 5 MG/5 ML VIAL IVP ONE ×2 (02:43→03:22)
[2020-07-08 03:39] LABS: BUN/Creatinine Ratio 30 (6-26); Blood Urea Nitrogen 23 mg/dL (8-23); Calcium 8.1 mg/dL (8.6-10.3); Carbon Dioxide 35 mEq/L (23-29); Chloride 73 mEq/L (98-107); Glucose 102 mg/dL (70-105); Osmolality,Calculated 244 (280-300); Potassium 3.8 mEq/L (3.5-5.1); Sodium 115 mEq/L (136-145); eGFR For African Americans > 60 (> 60); eGFR For Non-African Americans > 60 (> 60)
[2020-07-08] MEDS: Ipratropium/Albuterol Neb 3 ML IH SCH ×6 (03:42→23:37)
[2020-07-08] MEDS ORDERED: Artificial Tears SOLN 15 ML BOTTLE BOTH EYES SCH (04:00)
[2020-07-08] MEDS ORDERED: Hydrocortisone Sodium Succ 100 MG/2 ML VIAL IVP ONE (04:04)
[2020-07-08] MEDS ORDERED: Perflutren Lipid Microsphere 1.3 ML in 0.9 % Sodium Chloride 8.7 ML IVP PRN (04:12)
[2020-07-08] MEDS: Norepinephrine 4 MG/254 ML IV.SOLN IVC SCH (04:23)
[2020-07-08] MEDS: niCARdipine 20 MG/200 ML MLS IVC SCH ×6 (04:24→22:15)
[2020-07-08 04:38] LABS: ABG Base Excess 11 mEq/L (-2 to 3); ABG HCO3 41 mEq/L (21-27); ABG Oxygen Saturation 95 % (95-98); ABG PCO2 81 mmHg (35-45); ABG PH 7.31 pH Units (7.32-7.45); ABG PO2 91 mmHg (85-104); ABG TCO2 43 mEq/L (20-26); Blood Gas Modality ASSIST CONTROL; Blood Gas VT 500 cc
[2020-07-08] MEDS: FentaNYL (PF) 1,000 MCG/100 ML IV.SOLN IVC SCH ×3 (05:00→19:50)
[2020-07-08 05:29] LABS: BUN/Creatinine Ratio 27 (6-26); Blood Urea Nitrogen 23 mg/dL (8-23); Calcium 8.3 mg/dL (8.6-10.3); Carbon Dioxide 33 mEq/L (23-29); Chloride 73 mEq/L (98-107); Glucose 89 mg/dL (70-105); Osmolality,Calculated 243 (280-300); Potassium 3.7 mEq/L (3.5-5.1); Sodium 115 mEq/L (136-145); Troponin I 0.05 ng/mL (< 0.04); eGFR For African Americans > 60 (> 60); eGFR For Non-African Americans > 60 (> 60)
[2020-07-08] MEDS ORDERED: *HR* Dextrose 50 % in Water (Vial) 50 ML VIAL IVP PRN (05:37)
[2020-07-08] MEDS ORDERED: D5% in Water 1,000 ML IVC PRN (05:37)
[2020-07-08] MEDS ORDERED: Dextrose Gel 15 GM/37.5 ML TUBE PO PRN ×2 (05:37)
[2020-07-08 05:41] LABS: Creatine Kinase 3315 Units/L (30-223)
[2020-07-08 05:56] LABS: BUN/Creatinine Ratio 29 (6-26); Blood Urea Nitrogen 24 mg/dL (8-23); Calcium 8.5 mg/dL (8.6-10.3); Carbon Dioxide 32 mEq/L (23-29); Chloride 73 mEq/L (98-107); Glucose 85 mg/dL (70-105); Osmolality,Calculated 239 (280-300); Sodium 113 mEq/L (136-145); eGFR For African Americans > 60 (> 60); eGFR For Non-African Americans > 60 (> 60)
[2020-07-08] MEDS ORDERED: MethylPREDNISolone 40 MG/ML VIAL IVP SCH (06:00)
[2020-07-08] MEDS: Pantoprazole 40 MG VIAL IVP SCH (07:33)
[2020-07-08] MEDS: Doxycycline 100 MG in 0.9 % Sodium Chloride Mini Bag 100 ML IVPB SCH ×2 (07:35→17:18)
[2020-07-08] MEDS: Artificial Tears SOLN 15 ML BOTTLE BOTH EYES SCH ×6 (07:35→23:56)
[2020-07-08] MEDS: Insulin LISPRO 300 UNITS/3 ML VIAL SQ SCH ×4 (07:36→23:56)
[2020-07-08] MEDS ORDERED: 0.9 % Sodium Chloride 500 ML ONE ×2 (07:52→17:17)
[2020-07-08 08:00] LABS: Acetaminophen < 10 mcg/mL (10-20); BUN/Creatinine Ratio 28 (6-26); Blood Urea Nitrogen 25 mg/dL (8-23); Calcium 8.6 mg/dL (8.6-10.3); Carbon Dioxide 35 mEq/L (23-29); Chloride 74 mEq/L (98-107); Glucose 87 mg/dL (70-105); Osmolality,Calculated 242 (280-300); Potassium 3.8 mEq/L (3.5-5.1); Salicylate < 2.5 mg/dL (15.0-30.0); Sodium 114 mEq/L (136-145); eGFR For African Americans > 60 (> 60); eGFR For Non-African Americans > 60 (> 60)
[2020-07-08] MEDS: Piperacillin/Tazobactam 3.375 GM in 0.9 % Sodium Chloride Mini Bag 100 ML IVPB SCH ×3 (08:07→23:56)
[2020-07-08] MEDS: Chlorhexidine Rinse 15 ML MOUTHWASH MM SCH ×2 (08:08→20:34)
[2020-07-08] MEDS ORDERED: 0.9 % Sodium Chloride 500 ML IV ONE (08:26)
[2020-07-08] MEDS: Vancomycin 1,750 MG/517.5 ML IV.SOLN IVPB SCH ×2 (08:33→20:33)
[2020-07-08] MEDS ORDERED: Chlorhexidine Rinse 15 ML MOUTHWASH MM SCH (09:00)
[2020-07-08 10:30] LABS: Troponin I 0.04 ng/mL (< 0.04)
[2020-07-08 10:43] LABS: Bacteria,Urine Few per hpf (None-Few); Bilirubin,Urine Negative (Negative); Blood,Urine Large (Negative); Clarity,Urine Turbid (Clear); Color,Urine Yellow (Yellow); Glucose,Urine (UA) Normal (Normal); Hyaline Casts,Urine Few per lpf (None Seen); Ketones,Urine Negative (Negative); Leukocyte Esterase,Urine Negative (Negative); Mucus,Urine Few per lpf (None-Few); Nitrite,Urine Negative (Negative); Protein,Urine 30 mg/dL (Neg-Trace); RBC,Urine TNTC per hpf (0-3); Renal Epithelial Cells,Urine Few per hpf (None-Few); Specific Gravity,Urine > 1.030 (1.010-1.025); Transitional Epi Cells,Urine Few per hpf (None-Few); Urobilinogen,Urine Normal (Normal); WBC,Urine 15-30 per hpf (0-3); White Blood Cell Casts,Urine Few per lpf (None Seen)
[2020-07-08 11:44] LABS: BUN/Creatinine Ratio 29 (6-26); Blood Urea Nitrogen 27 mg/dL (8-23); Calcium 7.9 mg/dL (8.6-10.3); Carbon Dioxide 30 mEq/L (23-29); Chloride 77 mEq/L (98-107); Glucose 81 mg/dL (70-105); Osmolality,Calculated 246 (280-300); Potassium 3.9 mEq/L (3.5-5.1); Sodium 116 mEq/L (136-145); eGFR For African Americans > 60 (> 60); eGFR For Non-African Americans > 60 (> 60)
[2020-07-08] MEDS ORDERED: 0.9 % Sodium Chloride 500 ML IVC ONE (17:16)
[2020-07-08] MEDS: *HR* Heparin 5,000 UNIT/ML VIAL SQ SCH (17:19)
[2020-07-08 18:24] LABS: BUN/Creatinine Ratio 22 (6-26); Blood Urea Nitrogen 29 mg/dL (8-23); Calcium 8.1 mg/dL (8.6-10.3); Carbon Dioxide 31 mEq/L (23-29); Chloride 78 mEq/L (98-107); Glucose 73 mg/dL (70-105); Osmolality,Calculated 248 (280-300); Potassium 3.7 mEq/L (3.5-5.1); Sodium 117 mEq/L (136-145); eGFR For African Americans > 60 (> 60); eGFR For Non-African Americans 52 (> 60)
[2020-07-08] MEDS ORDERED: Potassium Chloride Elixir 20 MEQ/15 ML UDC GTUBE ONE (18:28)
[2020-07-08 22:32] LABS: Calcium 7.7 mg/dL (8.6-10.3); Potassium 4.1 mEq/L (3.5-5.1)
[2020-07-09] MEDS: Norepinephrine 4 MG/254 ML IV.SOLN IVC SCH ×3 (01:33→19:32)
[2020-07-09] MEDS: niCARdipine 20 MG/200 ML MLS IVC SCH ×5 (01:33→23:16)
[2020-07-09] MEDS: FentaNYL (PF) 1,000 MCG/100 ML IV.SOLN IVC SCH ×3 (02:31→16:55)
[2020-07-09] MEDS: Ipratropium/Albuterol Neb 3 ML IH SCH ×6 (03:25→23:28)
[2020-07-09 04:19] LABS: Basophils % 0.1 %; Eosinophils % 0.2 %; Hemoglobin 9.3 g/dL (12.9-16.9); Immature Granulocytes % 0.5 % (0-4); Lymphocytes # 0.9 K/mcL (0.6-4.6); Lymphocytes % 7.4 %; Mean Corpuscular HGB Conc 33.2 g/dL (31.6-35.5); Mean Corpuscular Hemoglobin 28.9 pg (28.0-33.3); Mean Platelet Volume 8.7 fL (9.4-12.4); Monocytes # 0.9 K/mcL (0.0-1.3); Monocytes % 8.1 %; Neutrophils # 9.6 K/mcL (1.6-8.9); Platelet Count 262 K/mcL (140-400); Red Blood Count 3.22 M/mcL (4.19-5.50); Red Cell Distribution Width 14.8 % (11.5-14.5); Segmented Neutrophils % 83.7 %; White Blood Count 11.4 K/mcL (4.3-11.1)
[2020-07-09] MEDS: Artificial Tears SOLN 15 ML BOTTLE BOTH EYES SCH ×5 (04:19→20:32)
[2020-07-09 04:21] LABS: ABG Base Excess 7 mEq/L (-2 to 3); ABG HCO3 35 mEq/L (21-27); ABG Oxygen Saturation 94 % (95-98); ABG PCO2 73 mmHg (35-45); ABG PH 7.29 pH Units (7.32-7.45); ABG PO2 82 mmHg (85-104); ABG TCO2 38 mEq/L (20-26); Blood Gas Modality ASSIST CONTROL; Blood Gas VT 500 cc
[2020-07-09 04:40] LABS: Albumin/Globulin Ratio 1.2 (1.1-2.2); Bilirubin,Total 0.4 mg/dL (0.3-1.0); Calcium 7.6 mg/dL (8.6-10.3); Globulin 2.5 g/dL (2.4-3.5); Magnesium 1.9 mg/dL (1.6-2.6); Phosphorous 2.8 mg/dL (2.7-4.5); Potassium 3.8 mEq/L (3.5-5.1); Total Protein 5.5 g/dL (6.4-8.9)
[2020-07-09] MEDS: *HR* Heparin 5,000 UNIT/ML VIAL SQ SCH ×2 (05:00→17:24)
[2020-07-09] MEDS: Insulin LISPRO 300 UNITS/3 ML VIAL SQ SCH ×3 (05:00→17:25)
[2020-07-09] MEDS: Doxycycline 100 MG in 0.9 % Sodium Chloride Mini Bag 100 ML IVPB SCH ×2 (05:00→17:24)
[2020-07-09] MEDS: Pantoprazole 40 MG VIAL IVP SCH (05:42)
[2020-07-09] MEDS: Piperacillin/Tazobactam 3.375 GM in 0.9 % Sodium Chloride Mini Bag 100 ML IVPB SCH ×2 (08:34→16:19)
[2020-07-09] MEDS: Chlorhexidine Rinse 15 ML MOUTHWASH MM SCH ×2 (08:34→20:32)
[2020-07-09 08:56] LABS: Sodium 120 mEq/L (136-145); Vancomycin,Trough 25 mcg/mL (5-10)
[2020-07-09] MEDS: Vancomycin 1,750 MG/517.5 ML IV.SOLN IVPB SCH (08:58)
[2020-07-09 09:50] LABS: Estimated Average Glucose 137 mg/dl
[2020-07-09] MEDS: Albumin Human 5% 12.5 GM/250 ML IV.SOLN IVC SCH ×2 (09:58→10:15)
[2020-07-09] MEDS ORDERED: Potassium Chloride Elixir 20 MEQ/15 ML UDC GTUBE ONE (10:39)
[2020-07-09 15:38] LABS: Calcium 7.8 mg/dL (8.6-10.3); Potassium 4.1 mEq/L (3.5-5.1)
[2020-07-09] MEDS ORDERED: 0.9 % Sodium Chloride 1,000 ML ONE (18:59)
[2020-07-09] MEDS ORDERED: 0.9 % Sodium Chloride 1,000 ML IVC SCH (19:00)
[2020-07-09 22:03] LABS: VBG Ionized Calcium 0.99 mmol/L (1.15-1.35)
[2020-07-10] MEDS: Artificial Tears SOLN 15 ML BOTTLE BOTH EYES SCH ×7 (00:06→23:41)
[2020-07-10] MEDS: Piperacillin/Tazobactam 3.375 GM in 0.9 % Sodium Chloride Mini Bag 100 ML IVPB SCH ×4 (00:07→23:40)
[2020-07-10] MEDS: Insulin LISPRO 300 UNITS/3 ML VIAL SQ SCH ×5 (00:07→23:43)
[2020-07-10] MEDS: FentaNYL (PF) 1,000 MCG/100 ML IV.SOLN IVC SCH ×3 (01:06→16:39)
[2020-07-10] MEDS: niCARdipine 20 MG/200 ML MLS IVC SCH ×6 (03:22→21:51)
[2020-07-10] MEDS: Norepinephrine 4 MG/254 ML IV.SOLN IVC SCH (03:23)
[2020-07-10] MEDS: Ipratropium/Albuterol Neb 3 ML IH SCH ×5 (03:51→20:09)
[2020-07-10 04:24] LABS: Albumin 3.1 g/dL (3.5-5.7); Albumin/Globulin Ratio 1.2 (1.1-2.2); Bilirubin,Total 0.5 mg/dL (0.3-1.0); Globulin 2.5 g/dL (2.4-3.5); Magnesium 1.9 mg/dL (1.6-2.6); Phosphorous 3.8 mg/dL (2.7-4.5); Total Protein 5.6 g/dL (6.4-8.9)
[2020-07-10 05:03] LABS: ABG Base Excess 2 mEq/L (-2 to 3); ABG HCO3 31 mEq/L (21-27); ABG Oxygen Saturation 88 % (95-98); ABG PCO2 67 mmHg (35-45); ABG PH 7.26 pH Units (7.32-7.45); ABG PO2 65 mmHg (85-104); ABG TCO2 33 mEq/L (20-26); Blood Gas VT 520 cc
[2020-07-10] MEDS: Pantoprazole 40 MG VIAL IVP SCH (05:25)
[2020-07-10] MEDS: Doxycycline 100 MG in 0.9 % Sodium Chloride Mini Bag 100 ML IVPB SCH (05:25)
[2020-07-10 05:42] LABS: Basophils % 0.3 %; Eosinophils # 0.2 K/mcL (0.0-0.6); Eosinophils % 1.1 %; Hematocrit 27.7 % (37.5-50.1); Hemoglobin 9.2 g/dL (12.9-16.9); Immature Granulocytes % 1.1 % (0-4); Lymphocytes # 0.7 K/mcL (0.6-4.6); Lymphocytes % 4.9 %; Mean Corpuscular HGB Conc 33.2 g/dL (31.6-35.5); Mean Corpuscular Hemoglobin 29.2 pg (28.0-33.3); Mean Corpuscular Volume 87.9 fL (83.0-100.0); Mean Platelet Volume 8.9 fL (9.4-12.4); Monocytes # 1.5 K/mcL (0.0-1.3); Monocytes % 10.2 %; Neutrophils # 11.9 K/mcL (1.6-8.9); Platelet Count 260 K/mcL (140-400); Red Blood Count 3.15 M/mcL (4.19-5.50); Red Cell Distribution Width 15.8 % (11.5-14.5); Segmented Neutrophils % 82.4 %; White Blood Count 14.5 K/mcL (4.3-11.1)
[2020-07-10] MEDS: *HR* Heparin 5,000 UNIT/ML VIAL SQ SCH ×2 (06:05→19:24)
[2020-07-10] MEDS: Chlorhexidine Rinse 15 ML MOUTHWASH MM SCH ×2 (08:47→20:18)
[2020-07-10] MEDS: Albumin 25% 25gram/100mL 25 GM/100 ML IV.SOLN IVPB SCH ×3 (08:48→23:41)
[2020-07-10] MEDS ORDERED: Vancomycin 1,250 MG/262.5 ML IV.SOLN IVPB SCH (09:00)
[2020-07-10 20:45] LABS: Calcium 7.8 mg/dL (8.6-10.3); Potassium 4.1 mEq/L (3.5-5.1)
[2020-07-11] MEDS: Ipratropium/Albuterol Neb 3 ML IH SCH ×7 (00:29→23:42)
[2020-07-11] MEDS: Norepinephrine 4 MG/254 ML IV.SOLN IVC SCH ×2 (03:02→19:52)
[2020-07-11] MEDS: FentaNYL (PF) 1,000 MCG/100 ML IV.SOLN IVC SCH ×3 (03:02→21:46)
[2020-07-11] MEDS: niCARdipine 20 MG/200 ML MLS IVC SCH ×6 (03:13→21:32)
[2020-07-11] MEDS: Artificial Tears SOLN 15 ML BOTTLE BOTH EYES SCH ×6 (03:20→23:23)
[2020-07-11 03:50] LABS: Basophils % 0.4 %; Eosinophils # 0.1 K/mcL (0.0-0.6); Eosinophils % 1.4 %; Hematocrit 23.3 % (37.5-50.1); Immature Granulocytes % 1.2 % (0-4); Lymphocytes # 0.7 K/mcL (0.6-4.6); Mean Corpuscular HGB Conc 32.2 g/dL (31.6-35.5); Mean Corpuscular Hemoglobin 28.5 pg (28.0-33.3); Mean Corpuscular Volume 88.6 fL (83.0-100.0); Mean Platelet Volume 8.4 fL (9.4-12.4); Monocytes # 1.1 K/mcL (0.0-1.3); Monocytes % 10.6 %; Neutrophils # 7.8 K/mcL (1.6-8.9); Platelet Count 204 K/mcL (140-400); Red Blood Count 2.63 M/mcL (4.19-5.50); Red Cell Distribution Width 15.9 % (11.5-14.5); Segmented Neutrophils % 79.4 %; White Blood Count 9.9 K/mcL (4.3-11.1)
[2020-07-11 03:52] LABS: Hemoglobin 7.5 g/dL (12.9-16.9)
[2020-07-11 03:54] LABS: VBG Ionized Calcium 0.97 mmol/L (1.15-1.35)
[2020-07-11 04:08] LABS: Albumin 3.3 g/dL (3.5-5.7); Albumin/Globulin Ratio 1.6 (1.1-2.2); Bilirubin,Total 0.6 mg/dL (0.3-1.0); Calcium 7.7 mg/dL (8.6-10.3); Globulin 2.1 g/dL (2.4-3.5); Magnesium 1.9 mg/dL (1.6-2.6); Phosphorous 4.8 mg/dL (2.7-4.5); Potassium 4.1 mEq/L (3.5-5.1); Total Protein 5.4 g/dL (6.4-8.9)
[2020-07-11 04:36] LABS: ABG Base Excess 3 mEq/L (-2 to 3); ABG HCO3 30 mEq/L (21-27); ABG Oxygen Saturation 92 % (95-98); ABG PCO2 60 mmHg (35-45); ABG PO2 74 mmHg (85-104); ABG TCO2 31 mEq/L (20-26); Blood Gas Modality ASSIST CONTROL; Blood Gas VT 520 cc
[2020-07-11] MEDS: *HR* Heparin 5,000 UNIT/ML VIAL SQ SCH ×2 (05:06→21:27)
[2020-07-11] MEDS: Calcium Gluconate 1gm/50mL 1 GM/50 ML BAG IVPB PRN (05:06)
[2020-07-11] MEDS: Pantoprazole 40 MG VIAL IVP SCH (05:06)
[2020-07-11] MEDS: Insulin LISPRO 300 UNITS/3 ML VIAL SQ SCH ×4 (05:07→23:23)
[2020-07-11] MEDS ORDERED: 0.9 % Sodium Chloride 500 ML ONE (08:56)
[2020-07-11] MEDS: Piperacillin/Tazobactam 3.375 GM in 0.9 % Sodium Chloride Mini Bag 100 ML IVPB SCH ×3 (09:23→23:24)
[2020-07-11] MEDS: Chlorhexidine Rinse 15 ML MOUTHWASH MM SCH ×2 (09:24→21:27)
[2020-07-11] MEDS ORDERED: *HR* Heparin 5,000 UNIT/ML VIAL ONE (09:53)
[2020-07-11] MEDS: Budesonide/Formoterol 80/4.5 1 PUFF INH IH SCH ×2 (11:16→20:21)
[2020-07-11] MEDS ORDERED: *HR* Alteplase (Cathflo) 2 MG VIAL IVP PRN (13:38)
[2020-07-11] MEDS ORDERED: *HR* Heparin 5,000 UNIT/ML VIAL IVP PRN (13:38)
[2020-07-11] MEDS ORDERED: 0.9 % Sodium Chloride 1,000 ML PRIME ONE ×2 (13:38)
[2020-07-11 17:11] LABS: Hematocrit 24.5 % (37.5-50.1); Hemoglobin 8.1 g/dL (12.9-16.9)
[2020-07-11 18:07] LABS: Adenovirus Not Detected (Not Detect); Bordetella Pertussis Not Detected (Not Detect); Chlamydophila pneumoniae Not Detected (Not Detect); Coronavirus 229E Not Detected (Not Detect); Coronavirus HKU1 Not Detected (Not Detect); Coronavirus NL63 Not Detected (Not Detect); Coronavirus OC43 Not Detected (Not Detect); Human Metapneumovirus Not Detected (Not Detect); Human Rhinovirus/Enterovirus Not Detected (Not Detect); Influenza A Subtype 2009 H1 Not Detected (Not Detect); Influenza B Not Detected (Not Detect); Mycoplasma pneumoniae Not Detected (Not Detect); Parainfluenza Virus 1 Not Detected (Not Detect); Parainfluenza Virus 2 Not Detected (Not Detect); Parainfluenza Virus 3 Not Detected (Not Detect); Parainfluenza Virus 4 Not Detected (Not Detect); Respiratory Syncytial Virus Not Detected (Not Detect); SARS-CoV-2 Not Detected (Not Detect)
[2020-07-11] MEDS: 0.9 % Sodium Chloride 1,000 ML PRIME SCH (20:03)
[2020-07-11] MEDS: PrismaSATE BGK 4/2.5 5,000 ML CRRT SCH ×2 (20:06→20:07)
[2020-07-12] MEDS: PrismaSATE BGK 4/2.5 5,000 ML CRRT SCH ×14 (00:06→21:52)
[2020-07-12 03:40] LABS: Basophils # 0.1 K/mcL (0.0-0.2); Basophils % 0.7 %; Eosinophils # 0.5 K/mcL (0.0-0.6); Eosinophils % 4.1 %; Hematocrit 26.6 % (37.5-50.1); Hemoglobin 8.4 g/dL (12.9-16.9); Immature Granulocytes % 4.2 % (0-4); Lymphocytes # 0.9 K/mcL (0.6-4.6); Lymphocytes % 7.1 %; Mean Corpuscular HGB Conc 31.6 g/dL (31.6-35.5); Mean Corpuscular Hemoglobin 28.5 pg (28.0-33.3); Mean Corpuscular Volume 90.2 fL (83.0-100.0); Mean Platelet Volume 8.9 fL (9.4-12.4); Monocytes # 1.5 K/mcL (0.0-1.3); Monocytes % 11.4 %; Neutrophils # 9.2 K/mcL (1.6-8.9); Nucleated Red Blood Cells 0.4 /100 WBC (0); Platelet Count 234 K/mcL (140-400); Red Blood Count 2.95 M/mcL (4.19-5.50); Red Cell Distribution Width 16.4 % (11.5-14.5); Segmented Neutrophils % 72.5 %; White Blood Count 12.7 K/mcL (4.3-11.1)
[2020-07-12] MEDS: Ipratropium/Albuterol Neb 3 ML IH SCH ×5 (03:46→19:51)
[2020-07-12 03:53] LABS: Albumin 3.4 g/dL (3.5-5.7); Albumin/Globulin Ratio 1.3 (1.1-2.2); Bilirubin,Total 0.6 mg/dL (0.3-1.0); Calcium 7.8 mg/dL (8.6-10.3); Globulin 2.6 g/dL (2.4-3.5); Magnesium 2.3 mg/dL (1.6-2.6); Phosphorous 5.2 mg/dL (2.7-4.5); Potassium 4.3 mEq/L (3.5-5.1)
[2020-07-12] MEDS: niCARdipine 20 MG/200 ML MLS IVC SCH ×2 (04:12→20:44)
[2020-07-12] MEDS: Artificial Tears SOLN 15 ML BOTTLE BOTH EYES SCH ×6 (04:12→23:11)
[2020-07-12 04:57] LABS: ABG Base Excess -1 mEq/L (-2 to 3); ABG HCO3 29 mEq/L (21-27); ABG Oxygen Saturation 92 % (95-98); ABG PCO2 79 mmHg (35-45); ABG PH 7.17 pH Units (7.32-7.45); ABG PO2 84 mmHg (85-104); ABG TCO2 31 mEq/L (20-26); Blood Gas Modality ASSIST CONTROL; Blood Gas VT 520 cc
[2020-07-12] MEDS: Norepinephrine 4 MG/254 ML IV.SOLN IVC SCH ×4 (05:06→20:50)
[2020-07-12] MEDS: FentaNYL (PF) 1,000 MCG/100 ML IV.SOLN IVC SCH ×4 (05:06→20:00)
[2020-07-12] MEDS: Calcium Gluconate 1gm/50mL 1 GM/50 ML BAG IVPB PRN (05:07)
[2020-07-12] MEDS: *HR* Heparin 5,000 UNIT/ML VIAL SQ SCH ×2 (05:07→18:34)
[2020-07-12] MEDS: Pantoprazole 40 MG VIAL IVP SCH (05:07)
[2020-07-12] MEDS: Insulin LISPRO 300 UNITS/3 ML VIAL SQ SCH ×3 (05:25→20:44)
[2020-07-12] MEDS: Chlorhexidine Rinse 15 ML MOUTHWASH MM SCH ×2 (07:47→20:44)
[2020-07-12] MEDS: Piperacillin/Tazobactam 3.375 GM in 0.9 % Sodium Chloride Mini Bag 100 ML IVPB SCH ×3 (07:47→23:11)
[2020-07-12] MEDS: Budesonide/Formoterol 80/4.5 1 PUFF INH IH SCH ×2 (07:55→19:51)
[2020-07-12] MEDS: 0.9 % Sodium Chloride 1,000 ML PRIME SCH (20:00)
[2020-07-12] MEDS ORDERED: Norepinephrine 8 MG in 0.9 % Sodium Chloride 250 ML IVC SCH (20:45)
[2020-07-12] MEDS: Norepinephrine 8 MG in 0.9 % Sodium Chloride 250 ML IVC SCH (21:43)
[2020-07-12] MEDS: Vasopressin 40 UNIT in D5% in Water 100 ML IVC SCH (22:09)
[2020-07-13] MEDS: Ipratropium/Albuterol Neb 3 ML IH SCH ×7 (00:22→23:27)
[2020-07-13] MEDS: PrismaSATE BGK 4/2.5 5,000 ML CRRT SCH ×14 (01:10→23:52)
[2020-07-13] MEDS: FentaNYL (PF) 1,000 MCG/100 ML IV.SOLN IVC SCH ×4 (01:36→23:51)
[2020-07-13] MEDS: Insulin LISPRO 300 UNITS/3 ML VIAL SQ SCH ×5 (04:36→23:56)
[2020-07-13] MEDS: Artificial Tears SOLN 15 ML BOTTLE BOTH EYES SCH ×6 (04:37→23:52)
[2020-07-13 04:49] LABS: Basophils # 0.1 K/mcL (0.0-0.2); Basophils % 0.9 %; Eosinophils # 0.6 K/mcL (0.0-0.6); Eosinophils % 5.6 %; Hematocrit 25.1 % (37.5-50.1); Hemoglobin 7.9 g/dL (12.9-16.9); Lymphocytes # 0.4 K/mcL (0.6-4.6); Lymphocytes % 4.1 %; Mean Corpuscular HGB Conc 31.5 g/dL (31.6-35.5); Mean Corpuscular Hemoglobin 29.3 pg (28.0-33.3); Mean Platelet Volume 8.6 fL (9.4-12.4); Monocytes # 1.3 K/mcL (0.0-1.3); Monocytes % 13.4 %; Neutrophils # 7.1 K/mcL (1.6-8.9); Nucleated Red Blood Cells 0.9 /100 WBC (0); Platelet Count 197 K/mcL (140-400); White Blood Count 9.9 K/mcL (4.3-11.1)
[2020-07-13] MEDS: Norepinephrine 8 MG in 0.9 % Sodium Chloride 250 ML IVC SCH ×3 (05:03→20:24)
[2020-07-13 05:05] LABS: Calcium 7.5 mg/dL (8.6-10.3); Potassium 4.6 mEq/L (3.5-5.1)
[2020-07-13 05:40] LABS: ABG Base Excess -1 mEq/L (-2 to 3); ABG HCO3 28 mEq/L (21-27); ABG Oxygen Saturation 85 % (95-98); ABG PCO2 72 mmHg (35-45); ABG PO2 63 mmHg (85-104); ABG TCO2 30 mEq/L (20-26); Blood Gas Modality ASSIST CONTROL; Blood Gas VT 550 cc
[2020-07-13] MEDS: Pantoprazole 40 MG VIAL IVP SCH (06:06)
[2020-07-13] MEDS: *HR* Heparin 5,000 UNIT/ML VIAL SQ SCH ×2 (06:06→18:10)
[2020-07-13] MEDS: Budesonide/Formoterol 80/4.5 1 PUFF INH IH SCH ×2 (07:45→20:00)
[2020-07-13] MEDS: Piperacillin/Tazobactam 3.375 GM in 0.9 % Sodium Chloride Mini Bag 100 ML IVPB SCH ×2 (08:53→16:39)
[2020-07-13] MEDS: Calcium Gluconate 1gm/50mL 1 GM/50 ML BAG IVPB PRN (08:59)
[2020-07-13] MEDS: Chlorhexidine Rinse 15 ML MOUTHWASH MM SCH ×2 (09:54→19:32)
[2020-07-13] MEDS: niCARdipine 20 MG/200 ML MLS IVC SCH ×3 (19:32→23:51)
[2020-07-13] MEDS: Vasopressin 40 UNIT in D5% in Water 100 ML IVC SCH ×2 (19:33→20:24)
[2020-07-14] MEDS: Piperacillin/Tazobactam 3.375 GM in 0.9 % Sodium Chloride Mini Bag 100 ML IVPB SCH ×3 (00:19→16:12)
[2020-07-14] MEDS: PrismaSATE BGK 4/2.5 5,000 ML CRRT SCH ×2 (02:59→03:00)
[2020-07-14 03:38] LABS: Basophils # 0.1 K/mcL (0.0-0.2); Basophils % 0.8 %; Eosinophils # 0.1 K/mcL (0.0-0.6); Hematocrit 25.3 % (37.5-50.1); Hemoglobin 7.7 g/dL (12.9-16.9); Immature Granulocytes % 5.8 % (0-4); Lymphocytes # 0.7 K/mcL (0.6-4.6); Lymphocytes % 6.4 %; Mean Corpuscular HGB Conc 30.4 g/dL (31.6-35.5); Mean Corpuscular Hemoglobin 28.4 pg (28.0-33.3); Mean Corpuscular Volume 93.4 fL (83.0-100.0); Monocytes # 1.2 K/mcL (0.0-1.3); Monocytes % 11.9 %; Neutrophils # 7.5 K/mcL (1.6-8.9); Nucleated Red Blood Cells 1.4 /100 WBC (0); Platelet Count 221 K/mcL (140-400); Red Blood Count 2.71 M/mcL (4.19-5.50); Red Cell Distribution Width 17.6 % (11.5-14.5); Segmented Neutrophils % 74.1 %; White Blood Count 10.1 K/mcL (4.3-11.1)
[2020-07-14] MEDS: Ipratropium/Albuterol Neb 3 ML IH SCH ×5 (03:38→20:10)
[2020-07-14] MEDS: niCARdipine 20 MG/200 ML MLS IVC SCH ×5 (03:49→19:35)
[2020-07-14] MEDS: Artificial Tears SOLN 15 ML BOTTLE BOTH EYES SCH ×5 (03:49→19:34)
[2020-07-14 03:56] LABS: Calcium 7.6 mg/dL (8.6-10.3); Potassium 4.7 mEq/L (3.5-5.1)
[2020-07-14 04:09] LABS: Anisocytosis 1+ (Not Present); Platelet Estimate Normal (Normal); Polychromasia 1+ (Not Present)
[2020-07-14] MEDS: *HR* Heparin 5,000 UNIT/ML VIAL SQ SCH ×2 (04:57→17:24)
[2020-07-14] MEDS: Pantoprazole 40 MG VIAL IVP SCH (04:57)
[2020-07-14] MEDS: Insulin LISPRO 300 UNITS/3 ML VIAL SQ SCH ×3 (04:59→17:39)
[2020-07-14 05:26] LABS: ABG Base Excess -2 mEq/L (-2 to 3); ABG HCO3 27 mEq/L (21-27); ABG Oxygen Saturation 95 % (95-98); ABG PCO2 58 mmHg (35-45); ABG PH 7.27 pH Units (7.32-7.45); ABG PO2 89 mmHg (85-104); ABG TCO2 29 mEq/L (20-26); Blood Gas VT 550 cc
[2020-07-14] MEDS: FentaNYL (PF) 1,000 MCG/100 ML IV.SOLN IVC SCH ×4 (05:54→21:46)
[2020-07-14] MEDS: Chlorhexidine Rinse 15 ML MOUTHWASH MM SCH ×2 (07:36→19:34)
[2020-07-14] MEDS: Budesonide/Formoterol 80/4.5 1 PUFF INH IH SCH ×2 (07:44→20:10)
[2020-07-14] MEDS: Calcium Gluconate 1gm/50mL 1 GM/50 ML BAG IVPB SCH ×2 (10:41→11:27)
[2020-07-15] MEDS: Insulin LISPRO 300 UNITS/3 ML VIAL SQ SCH ×4 (00:01→17:06)
[2020-07-15] MEDS: Piperacillin/Tazobactam 3.375 GM in 0.9 % Sodium Chloride Mini Bag 100 ML IVPB SCH ×3 (00:03→16:46)
[2020-07-15] MEDS: FentaNYL (PF) 1,000 MCG/100 ML IV.SOLN IVC SCH ×3 (03:00→20:31)
[2020-07-15 03:46] LABS: Hematocrit 21.2 % (37.5-50.1); Hemoglobin 6.5 g/dL (12.9-16.9); Mean Corpuscular HGB Conc 30.7 g/dL (31.6-35.5); Mean Corpuscular Hemoglobin 28.6 pg (28.0-33.3); Mean Corpuscular Volume 93.4 fL (83.0-100.0); Mean Platelet Volume 8.7 fL (9.4-12.4); Nucleated Red Blood Cells 2.4 /100 WBC (0); Platelet Count 209 K/mcL (140-400); Red Blood Count 2.27 M/mcL (4.19-5.50); Red Cell Distribution Width 17.8 % (11.5-14.5); White Blood Count 11.7 K/mcL (4.3-11.1)
[2020-07-15 03:47] LABS: VBG Ionized Calcium 1.08 mmol/L (1.15-1.35)
[2020-07-15] MEDS: Artificial Tears SOLN 15 ML BOTTLE BOTH EYES SCH ×6 (03:56→20:30)
[2020-07-15] MEDS: niCARdipine 20 MG/200 ML MLS IVC SCH ×4 (03:56→11:33)
[2020-07-15] MEDS: Ipratropium/Albuterol Neb 3 ML IH SCH ×7 (04:00→23:28)
[2020-07-15 04:02] LABS: Calcium 8.3 mg/dL (8.6-10.3); Magnesium 2.6 mg/dL (1.6-2.6); Potassium 3.8 mEq/L (3.5-5.1)
[2020-07-15 04:09] LABS: Lymphocytes # 0.5 K/mcL (0.6-4.6); Monocytes # 0.2 K/mcL (0.0-1.3); Platelet Estimate Normal (Normal); Poikilocytosis 1+ (Not Present)
[2020-07-15 05:03] LABS: ABG Base Excess 0 mEq/L (-2 to 3); ABG HCO3 26 mEq/L (21-27); ABG Oxygen Saturation 96 % (95-98); ABG PCO2 50 mmHg (35-45); ABG PH 7.32 pH Units (7.32-7.45); ABG PO2 88 mmHg (85-104); ABG TCO2 27 mEq/L (20-26); Blood Gas Modality ASSIST CONTROL; Blood Gas VT 550 cc
[2020-07-15] MEDS: Calcium Gluconate 1gm/50mL 1 GM/50 ML BAG IVPB PRN (05:49)
[2020-07-15] MEDS: *HR* Heparin 5,000 UNIT/ML VIAL SQ SCH ×2 (05:50→17:08)
[2020-07-15] MEDS: Pantoprazole 40 MG VIAL IVP SCH (05:50)
[2020-07-15] MEDS: Budesonide/Formoterol 80/4.5 1 PUFF INH IH SCH ×2 (07:29→19:31)
[2020-07-15] MEDS: Chlorhexidine Rinse 15 ML MOUTHWASH MM SCH ×2 (07:58→20:30)
[2020-07-15] MEDS ORDERED: 0.9 % Sodium Chloride 250 ML IVC SCH (12:30)
[2020-07-15] MEDS: Vasopressin 40 UNIT in D5% in Water 100 ML IVC SCH (16:40)
[2020-07-16] MEDS: Piperacillin/Tazobactam 3.375 GM in 0.9 % Sodium Chloride Mini Bag 100 ML IVPB SCH ×2 (00:21→07:43)
[2020-07-16] MEDS: Insulin LISPRO 300 UNITS/3 ML VIAL SQ SCH ×2 (00:22→06:15)
[2020-07-16] MEDS: Artificial Tears SOLN 15 ML BOTTLE BOTH EYES SCH ×3 (00:22→07:44)
[2020-07-16] MEDS: Ipratropium/Albuterol Neb 3 ML IH SCH ×2 (03:24→07:55)
[2020-07-16] MEDS: FentaNYL (PF) 1,000 MCG/100 ML IV.SOLN IVC SCH (04:12)
[2020-07-16 04:25] LABS: Hematocrit 20.5 % (37.5-50.1); Hemoglobin 6.6 g/dL (12.9-16.9); Mean Corpuscular HGB Conc 32.2 g/dL (31.6-35.5); Mean Corpuscular Hemoglobin 29.9 pg (28.0-33.3); Mean Corpuscular Volume 92.8 fL (83.0-100.0); Mean Platelet Volume 9.1 fL (9.4-12.4); Nucleated Red Blood Cells 2.8 /100 WBC (0); Platelet Count 204 K/mcL (140-400); Red Blood Count 2.21 M/mcL (4.19-5.50); White Blood Count 11.4 K/mcL (4.3-11.1)
[2020-07-16 04:37] LABS: VBG Ionized Calcium 1.07 mmol/L (1.15-1.35)
[2020-07-16 04:43] LABS: Calcium 8.1 mg/dL (8.6-10.3); Phosphorous 7.2 mg/dL (2.7-4.5); Potassium 4.2 mEq/L (3.5-5.1)
[2020-07-16 05:18] LABS: Anisocytosis 1+ (Not Present); Lymphocytes # 1.6 K/mcL (0.6-4.6); Monocytes # 0.7 K/mcL (0.0-1.3); Neutrophils # 8.7 K/mcL (1.6-8.9); Platelet Estimate Normal (Normal); Poikilocytosis 1+ (Not Present)
[2020-07-16] MEDS: *HR* Heparin 5,000 UNIT/ML VIAL SQ SCH (06:06)
[2020-07-16] MEDS: Pantoprazole 40 MG VIAL IVP SCH (06:06)
[2020-07-16] MEDS: Chlorhexidine Rinse 15 ML MOUTHWASH MM SCH (07:43)
[2020-07-16] MEDS ORDERED: 0.9 % Sodium Chloride 250 ML IVC PRN (09:47)
[2020-07-16] MEDS ORDERED: *HR* Heparin 10,000 UNIT/10 ML VIAL IV PRN (09:47)
[2020-07-16] MEDS ORDERED: Atropine Sulfate 1% 40 DROP/2 ML BOTTLE SL PRN (10:24)
[2020-07-16] MEDS ORDERED: Haloperidol Lactate 5 MG/ML VIAL IVP PRN ×2 (10:26→13:54)
[2020-07-16] MEDS ORDERED: *HR* FentaNYL (PF) 100 MCG/2 ML VIAL IVP PRN ×2 (10:26→13:54)
[2020-07-16] MEDS ORDERED: *HR* LORazepam 2 MG/ML VIAL IVP PRN ×2 (10:26→13:54)
[2020-07-16] MEDS ORDERED: FentaNYL (PF) 1,000 MCG/100 ML IV.SOLN IVC SCH (13:54)
[2020-07-16] MEDS ORDERED: Atropine 1% Opth Drops 100 DROP/5 ML BOTTLE SL PRN (13:55)
[2020-07-16] MEDS: *HR* LORazepam Oral Conc 2 MG/ML SL PRN ×2 (15:13→19:47)
[2020-07-16] MEDS: Budesonide/Formoterol 80/4.5 1 PUFF INH IH SCH (15:18)
[2020-07-16] MEDS: *HR* FentaNYL (PF) 100 MCG/2 ML VIAL IVP PRN ×2 (17:14→19:47)
[2020-07-16 19:04] VITALS: BP 118/63
== END 2020-07-16 23:45 | disposition expired | DRG 870 ==
LOC: EMEROOARM 22:19 → ICNU 22:19 → 2ANU 07-16 14:56
PROVIDERS: ADMIT Internal Medicine; ATTEND Internal Medicine